=== PATIENT | female | born 1955 | race Caucasian/White ===

== ENCOUNTER 2024-12-26 09:32 | Outpatient (AMB) | payer MEDICARE, OTHER, SELFPAY ==
--- NOTE | 2024-12-26 09:48 | A.OFFVIS_ITS ---
Intake Visit Reasons: 6m Allergies No Known Allergies Allergy (Verified 12/26/24 09:48) Medication List - Last Reconciled 12/26/24 by Miriam Mendez CNP atogepant (Qulipta) 60 mg PO .every other day 30 days atorvastatin 10 mg PO DAILY ycnbfxoapb-vtnrrylsigbqf-xdwx 50-325-40 mg 1 tab PO Q6H PRN diltiazem HCl CD 240 mg PO DAILY famotidine 40 mg PO DAILY ipratropium bromide intranasal minoxidil mg PO ondansetron 4 mg PO DAILY PRN 30 days pantoprazole 40 mg PO DAILY temazepam 15 mg PO BEDTIME PRN zolmitriptan take 1 tab at onset of headache; if no relief, may repeat 1 tab after at least 2 hrs; max = 2 tabs/24 hrs PO 30 days HPI Comments Details: She was doing okay. Migraines controlled with Quilpta, taking 1/2 tablet daily. Had 3 migraines in last 6 months that lasted about 1 day with nausea. Using Fioricet as needed which helps dull pain some, works better for mild headaches. Ran out of zolmitriptan. Few mild headaches which may be triggered by stress. Sleep was up and down. Under some stress related to 's health. Doing well with Qulipta every other day, getting only slight headaches. Previously, was getting migraines 2-3x/ week that are moderate and 1-2 bad migraines/month. Weather changes trigger them. Cannot afford the copay and had a rash with each of the Ajovy, Aimovig and Emgality. Fioricet not working well and may take a Percocet. Bad intestinal bleed on Mar 12, 2019 (Also 18yrs ago) This time they could not see the bleeding site. Completed her iron infusions. Neck pain from degen disc disease is milder and when worse it triggers her migraine. She has a history of migraine headaches since childhood. She had been getting Botox injections in [place] for many years. In the past has tried Topiramate, amitriptyline and Propranolol, Emgality, Ajovy. Last Botox 2018. [facility] Medical History (Updated 12/26/24 @ 09:56 by Miriam Mendez CNP) Insomnia Depression Hypertension Review of Systems Const Denies chills, Denies daytime sleepiness, Reports difficulty sleeping, Denies fatigue, Denies fever(s), Denies frequent falls, Reports headache(s), Denies increased appetite, Denies poor appetite, Denies snoring, Denies weakness, Denies weight gain and Denies weight loss Eyes Denies loss of vision ENT Denies vertigo, Denies dizziness, Reports headache(s) and Denies neck pain Card Denies chest pain at rest, Denies chest pain with activity, Denies syncope, Denies leg edema, Denies palpitations, Denies dyspnea and Denies dyspnea on exertion Resp Denies cough, Denies dyspnea, Denies dyspnea on exertion and Denies snoring GI Denies abdominal pain, Denies constipation, Denies heartburn, Denies diarrhea and Denies nausea Denies urinary frequency, Denies urinary incontinence and Denies urinary urgency Musc Denies abnormal gait, Denies back pain, Denies myalgias, Denies arthralgias, D enies neck pain, Denies numbness and Denies tingling Neuro Denies abnormal gait, Denies vertigo, Denies dizziness, Denies syncope, Denies frequent falls, Reports headache(s), Denies lack of coordination, Denies loss of vision, Denies memory loss, Denies numbness, Denies Other visual disturbances, Denies restless legs, Denies seizure-like activity, Denies tingling, Denies p aresthesias, Denies tremor(s) and Denies weakness Psych Denies anxiety, Reports depression, Denies auditory hallucinations, Denies memory loss and Denies visual hallucinations Endo Denies fatigue and Denies palpitations Physical Exam Const Other: General Appearance:? normal, in no acute distress. Heart:? S1, S2 normal, no murmurs. Lungs:? clear anteriorly and posteriorly. Musculoskeletal:? normal. Extremities:? no edema. Psych:? alert, oriented, cognitive function intact, cooperative with exam. Neuro Other: Abnormal Neurological Findings:?1-2mm L ptosis. Slight weakness of L frontalis. Facial asymmetry with L angle of mouth droop without weakness. Mental Status: alert and oriented X 3. Normal attention, orientation, memory, and affect. Cranial Nerves: Pupils are equal, round, and reactive to light. External ocular muscles are intact. Visual vines are full, 1-2mm L ptosis. Facial asymmetry as above. Facial sensations are normal. Tongue protrudes in midline. Palate elevates symmetrically. Shoulder shrugging is normal Motor Examination: Normal muscle tone, bulk and strength. No atrophy or fasciculations. No drift of the extended upper extremities. DTR 2+. Plantars are flexor. Sensory Exam: Normal light touch, temperature, pinprick, vibration, and joint- position sensations. Rhomberg sign is absent. Coordination: No ataxia. No titubation. Gait Exam: Within normal limits. Cerebellar Signs: Msjolj-yw-zimx and sioz-gn-rqoa is normal. Extrapyramidal System: No tremor, rigidity with normal facial expressions. No bradykinesia. No bradyphrenia. Normal arm swing and posture. No propulsion or retropulsion. Speech: Normal. Results Reviewed Results Reviewed: MRI 09/05/17 and 09/05/16 shows mild microvascular disease and a stable right temporal lobe csf space. Ptosis possibly related to Botox but not resolving. Labs normal. Assessment & Plan Assessment & Plan (1) Migraine: Code(s): G43.909 - Migraine, unspecified, not intractable, without status migrainosus Category: Medical Qualifiers: Migraine type: unspecified Status migrainosus presence: without status migrainosus Intractability: not intractable Qualified Code(s): G43.909 - Migraine, unspecified, not intractable, without status migrainosus Plan: Continue Qulipta 60mg 1/2 tablet daily. Refilled zolmitriptan 5mg 1 tablet as needed for migraines. Start ondansetron 4mg 1 tablet as needed for nausea/vomiting. (2) Ptosis: Code(s): H02.409 - Unspecified ptosis of unspecified eyelid Category: Medical Qualifiers: Laterality: left Qualified Code(s): H02.402 - Unspecified ptosis of left eyelid Plan Has failed prophylaxis with Propranolol, Topiramate, Amitriptyline, NSAIDS, Botox, calcium channel blockers. Uses Triptans for abortive therapy. Traeerwin and Isatu both worked but she was having very itchy local reactions so she stopped them. Emgality 02/08/19 to May 2019, severe local reactions. Does not want Botox again because of the ptosis from last injection. Medications: New zolmitriptan take 1 tab at onset of headache; if no relief, may repeat 1 tab after at least 2 hrs; max = 2 tabs/24 hrs PO 10 tabs 5RF 30 days ondansetron 4 mg PO DAILY PRN 10 tabs 5RF nausea and vomiting 30 days Coding Level of Care Code Est Pt Level 4 (23156) Diagnoses Migraine without status migrainosus, not intractable, unspecified migraine type G43.909 Migraine type: unspecified Status migrainosus presence: without status migrainosus Intractability: not intractable Ptosis of left eyelid H02.402 Laterality: left
--- OUTSIDE RECORDS SUMMARY | 2024-12-26 10:48 | XMS_ITS | Encounter Summary ---
Author Organization [facility] Address [address] [place] [address] [address] [place] [address] Phone Care Team Providers Care Optomechanical Technician Name Role Phone Loreto Bustillo CNP Unavailable [phone] Diann Juarez MD Unavailable [phone] Jacky Chan MD Unavailable Fariha Briseno NP Unavailable Tami Greenberg MD Unavailable Jonathan Alonzo MD Unavailable Unavailable Jim Durant MD Unavailable [phone] Marcos Sanz MD Unavailable [phone] Loreto Bustillo CNP Primary Care Provider Diann Juarez MD Unavailable Diann Juarez MD Unavailable [phone] Loreto Bustillo CNP Unavailable [phone] Reason for Referral * MRI/CAT Scan - Closed Specialty Diagnoses / Procedures Referred By Contac t Referred To Contact Radiology Diagnoses Arthralgia of bilateral temporomandibular joint Other specified disorders of eustachian tube, bilateral Nonintractable headache, unspecified chronicity pattern, unspecified headache type Procedures CT Face Navarro Holley MD Phone: tel: fax: [email or web address] Referral ID Status Reason Start Date Expiration Date Visits Re quested Visits Authorized [id number] Closed 01/07/2021 01/07/2022 1 1 Encounter Details Date Type Department Care Team (Latest Contact Info) Description 01/07/2021 Transcribe Orders Virtual Department [address] [place] [address] Navarro Holley MD 100 [facility], [address] [place] [address] [email or web address] Arthralgia of bilateral temporomandibular joint (Primary Dx); Other specified disorders of eustachian tube, bilateral; Nonintractable headache, unspecified chronicity pattern, unspecified headache type Social History Tobacco Use Types Packs/Day Years Used Date Smoking Tobacco: Never Smokeless Tobacco: Never Alcohol Use Standard Drinks/Week Comments Yes 1 (1 standard drink = 0.6 oz pur e alcohol) twice a year Comments No Sex and Gender Information Value Date Recorded Sex Assigned at Female 01/14/2018 5:23 PM EDT Legal Sex Female 9:57 PM EDT Gender Identity Female 01/14/2018 5:23 PM EDT Sexual Orientation Not on file Occupation Industry Job Start Date Job End Date ATT[employer] Not on file Not on file Not on file documented as of this encounter Plan of Treatment Upcoming Encounters Date Type Department Care Team (Late st Contact Info) Description 12/26/2024 11:00 AM EDT Office Visit [facility] [address] [place] [address] Robert Tristan MD [address] [place] [address] [email or web address] 01/09/2025 10:20 AM EDT Office Visit [facility] [address] [place] [address] Robert Tristan MD [address] [place] [address] [email or web address] 06/06/2025 9:00 AM EDT Office Visit [facility] 14 [facility] [address] [place] [address] Keny Loreto Ogdense, AUTOMATIC COIN MACHINE MECHANIC 14 [facility] [address] [place] [address] documented as of this encounter Results * CT FACE WITHOUT CONTRAST (02/06/2021 2:18 PM EST) Anatomical Region Laterality Modality Face Computed Tomogra phy 02/06/2021 2:20 PM EST Impressions 02/06/2021 2:46 PM EST No evidence of sinusitis. Narrative 02/06/2021 2:46 PM EST COMPARISON: MRI brain 08/31/2017. TECHNIQUE: CT of the facial bones without contrast. Sagittal and coronal reformats generated. Automated exposure control utilized. CT FACIAL BONES FINDINGS: Brain: Stable mild generalized cortical atrophy and chronic right millimeter medial right temporal lobe perineural cyst versus perivascular space. No incidental findings of concern. Orbits: Left lens implant. Otherwise normal. Soft tissue: Normal. Bones/sinuses: Small left maxillary sinus retention cyst. No air-fluid levels. No nasal septal deviation. Ostiomeatal complex is are patent. Mastoids, middle ears and external canals are clear. No destructive or suspicious bone lesions. Procedure Note Jonathan Luo MD - 02/06/2021 COMPARISON: MRI brain 08/31/2017. TECHNIQUE: CT of the facial bones without contrast. Sagittal and coronalreformats generated. Automated exposure control utilized. CT FACIAL BONES FINDINGS: Brain: Stable mild generalized cortical atrophy and chronic rightmillimeter medial right temporal lobe perineural cyst versus perivascularspace. No incidental findings of concern. Orbits: Left lens implant. Otherwise normal. Soft tissue: Normal. Bones/sinuses: Small left maxillary sinus retention cyst. No air-fluidlevels. No nasal septal deviation. Ostiomeatal complex is are patent.Mastoids, middle ears and external canals are clear. No destructive orsuspicious bone lesions. IMPRESSION: No evidence of sinusitis. Navarro Holley MD IMG CT HEAD/NECK Final Re sult documented in this encounter Visit Diagnoses Diagnosis Arthralgia of bilateral temporomandibular joint- Primary Other specified disorders of eustachian tube, bilateral Nonintractable headache, unspecified chronicity pattern, unspecified headache type Arthralgia of bilateral temporomandibular joint Other specified disorders of eustachian tube, bilateral Nonintractable headache, unspecified chronicity pattern, unspecified headache type Hyperlipidemia, unspecified hyperlipidemia type- Primary Essential hypertension Unspecified essential hypertension Coronary artery calcification seen on CT scan Mitral annular calcification Mitral valve disorders documented in this encounter Additional Health Concerns Infection Onset Date Last Indicated Resolved Time CoV-Risk 06/02/2021 06/02/2021 06/13/2021 1:23 AM EDT documented as of this encounter Care Teams Optomechanical Technician Relationship Specialty Start Date End Date Loreto Bustillo CNP [address] [place] [address] [place] [address] [email or web address] PCP - General 01/12/17 Loreto Bustillo CNP [address] [place] [address] [place] [address] [email or web address] Historical LMR Provider 01/10/17 Diann Juarez MD [address] [place] [address] [address] [place] [address] [email or web address] Historical LMR Provider 01/10/17 Jacky Chan MD [address] [place] [address] [address] [place] [address] [email or web address] Historical LMR Provider 01/10/17 Fariha Briseno NP 14 [facility] [address] [place] [address] [email or web address] Historical LMR Provider 01/10/17 Tami Greenberg MD [address] [place] [address] [email or web address] Historical LMR Provider 01/10/17 Jonathan Alonzo MD Historical LMR Provider 01/10/17 03/29/21 Jim Durant MD [address] [place] [address] Historical LMR Provider 01/10/17 2 Marcos Sanz MD [address] [place] [address] [email or web address] Historical LMR Provider 01/10/17 03/29/21 Diann Juarez MD [address] [place] [address] [email or web address] Insurance Assigned Provider 06/28/1903/28/22 Diann Juarez MD 14 [facility] [address] [place] [address] [email or web address] Insurance Assigned Provider 06/26/2306/25/24 Loreto Butsillo, ELIZABETH [address] [place] [address] [place] [address] [email or web address] Insurance Assigned Provider 06/25/24 documented as of this encounter Additional Source Comments The information contained in this document represents components of the legal health record. It is not the complete legal health record.[facility]
--- OUTSIDE RECORDS SUMMARY | 2024-12-26 10:48 | XMS_ITS | Encounter Summary ---
Author Organization [facility] Address [address] [place] [address] [place] [address] Phone Care Team Providers Care Handicapped Teacher Name Role Phone Loreto Bustillo CNP Unavailable [phone] Diann Juarez MD Unavailable [phone] Jacky Chan MD Unavailable [phone] Fariha Briseno NP Unavailable [phone] Tami Greenberg MD Unavailable [phone] Loreto Bustillo CNP Primary Care Provider Diann Juarez MD Unavailable [phone] Diann Juarez MD Unavailable [phone] Loreto Bustillo CNP Unavailable [phone] Encounter Details Date Type Department Care Team (Latest Contact Info) Description 01/01/2022 Transcribe Orders [facility] [address] [address] Jami Tellez NP 10 [place] [address] Constipation, unspecified constipation type (Primary Dx); Change in bowel habits; Nausea Social History Tobacco Use Types Packs/Day Years Used Date Smoking Tobacco: Never Smokeless Tobacco: Never Alcohol Use Standard Drinks/Week Comments Yes 0 (1 standard drink = 0.6 oz pur e alcohol) twice yearly Comments No Sex and Gender Information Value [...] Description 12/26/2024 11:00 AM EDT Office Visit [facility] [address] [place] [address] Robert Tristan MD [address] [address] [email or web address] 01/09/2025 10:20 AM EDT Office Visit [facility] [address] [place] [address] Robert Tristan MD [address] [address] [email or web address] 06/06/2025 9:00 AM EDT Office Visit [facility] [place] [facility] 14 [facility] [address] [place] [address] PheLoreto bains, TURBO GENERATOR OILER 14 [facility] [address] [place] [address] [email or web address] documented as of this encounter Results * TSH (01/01/2022 2:49 PM EDT) TSH 1.76 0.27 - 4.20 uIU/mL [facility] Blood 01/01/2022 2:49 PM EDT 01/01/2022 2:53 PM EDT us Jami Tellez AIR ANALYST LAB BLOOD ORDERABLES Alejandra l Result [facility] [address] [place] [address] * Lipase (01/01/2022 2:49 PM EDT) Pathologist [facility] LIPASE 52 16 - 63 U/L [facility] Blood 01/01/2022 2:49 PM EDT 01/01/2022 2:53 PM EDT Jami Tellez AIR ANALYST LAB BLOOD ORDERABLES Alejandra l Result [address] [address] * C-Reactive Protein (01/01/2022 2:49 PM EDT) Pathologist [facility] C REACTIVE PROTEIN <3.0 0.0 - 4.0 mg/L [facility] Blood 01/01/2022 2:49 PM EDT 01/01/2022 2:53 PM EDT Jami Tellez NP LAB BLOOD ORDERABLES Alejandra l Result [address] [address] * (ABNORMAL) Comprehensive metabolic panel (01/01/2022 2:49 PM EDT) Pathologist [facility] SODIUM 140 133 - 146 mmol/L [facility] POTASSIUM 4.0 3.3 - 5.1 mmol/L [facility] CHLORIDE 103 96 - 108 mmol/L [facility] CO2 26 21 - 35 mmol/L [facility] BUN 13 6 - 19 mg/dL [facility] CREATININE 0.70 0.5 - 1.5 mg/dL [facility] GLUCOSE 114(H) 70 - 99 mg/dL [facility] ALBUMIN 4.3 3.9 - 4.8 g/dL [facility] TOTAL PROTEIN 6.9 6.5 - 8.0 g/dL [facility] CALCIUM 9.7 8.4 - 10.3 mg/dL [facility] ALKALINE PHOSPHATASE 115 39 - 117 U/L [facility] TOTAL BILIRUBIN <0.2 0.0 - 1.2 mg/dL [facility] AST 29 0 - 37 U/L [facility] ALT 18 0 - 40 U/L [facility] GLOBULIN 2.6 1 - 4.8 g/dL [facility] EGFR 94 >59 mL/min/1.7 3m2 [facility] Comment:Estimated glomerular filtration rate calculated using the CKD-EPI refit equation. ANION GAP 15 10 - 20 mmol/L [facility] Blood 01/01/2022 2:49 PM EDT 01/01/2022 2:53 PM EDT Jami Tellez NP LAB BLOOD ORDERABLES Alejandra l Result Performing Organization Address City/[facility]/ZIP Co de Phone Number [address] [address] * CBC (01/01/2022 2:49 PM EDT) WBC 6.30 4.00 - 11.00 K/uL [facility] RBC 4.42 3.72 - 5.30 M/uL [facility] HGB 13.3 11.4 - 15.9 g/dL [facility] HCT 38.6 34.2 - 46.8 % [facility] PLT 283 140 - 430 K/uL [facility] MCV 87.3 78.0 - 97.0 fL [facility] MCH 30.1 25.0 - 33.0 pg [facility] MCHC 34.5 32.0 - 36.0 g/dL [facility] RDW 12.0 11.0 - 16.0 % [facility] MPV 12.0 8.4 - 12.8 fl [facility] Blood 01/01/2022 2:49 PM EDT 01/01/2022 2:53 PM EDT Jami Tellez NP LAB BLOOD ORDERABLES Alejandra l Result Performing Organization Address City/[facility]/ZIP Co de Phone Number [address] [address] * Immunoglobulin A (01/01/2022 2:49 PM EDT) IgA 268 70 - 400 mg/dL [facility] Blood 01/01/2022 2:49 PM EDT 01/01/2022 2:53 PM EDT Jami Tellez AIR ANALYST LAB BLOOD ORDERABLES Alejandra l Result [facility] [address] [place] [address] * Tissue transglutaminase IgA (01/01/2022 2:49 PM EDT) TTG IGA ANTIBODY <1.2 <4.0 (Negative) U/mL [facility] Blood 01/01/2022 2:49 PM EDT 01/01/2022 2:54 PM EDT Jami Tellez AIR ANALYST LAB BLOOD ORDERABLES Alejandra l Result Performing Organization Address City/[facility]/ZIP Co de Phone Number [facility] [address] [place] [address] documented in this encounter Visit Diagnoses Diagnosis Constipation, unspecified constipation type- Primary Change in bowel habits Other symptoms involving digestive system Nausea Nausea alone Hyperlipidemia, unspecified hyperlipidemia type- Primary Essential hypertension Unspecified essential hypertension Coronary artery calcification seen on CT scan Mitral annular calcification Mitral valve disorders documented in this encounter Additional Health Concerns Assessment Noted Time PHQ-2 Depression Total Score: 0 04/02/19 22 8:45 AM EST documented as of this encounter Care Teams Handicapped Teacher Relationship Specialty Start Date End Date Loreto Bustillo CNP 14 [facility] [address] [place] [address] PCP - General 01/12/17 Loreto Bustillo CNP [address] [place] [address] [address] [place] [address] [email or web address] Historical LMR Provider 01/10/17 Diann Juarez MD [address] [place] [address] [email or web address] Historical LMR Provider 01/10/17 Jacky Chan MD [address] [place] [address] [email or web address] Historical LMR Provider 01/10/17 Fariha Briseno NP [address] [place] [address] [email or web address] Historical LMR Provider 01/10/17 Tami Greenberg MD [address] [place] [address], [facility] [place] [address] [email or web address] Historical LMR Provider 01/10/17 Diann Juarez MD [address] [place] [address] [email or web address] Insurance Assigned Provider 06/28/1903/28/22 Diann Juarez MD [address] [place] [address] [email or web address] Insurance Assigned Provider 06/26/2306/25/24 Loreto Bustillo, TURBO GENERATOR OILER [address] [place] [address] [email or web address] Insurance Assigned Provider 06/25/24 documented as of this encounter Additional Source Comments The information contained in this document represents components of the legal health record. It is not the complete legal health record.[facility]
--- OUTSIDE RECORDS SUMMARY | 2024-12-26 10:48 | XMS_ITS | Encounter Summary ---
Author Organization [facility] Address [address] [place] [address] [place] [address] Phone Care Team Providers Care Cane Flume Chute Operator Name Role Phone Loreto Bustillo CNP Unavailable [phone] Diann Juarez MD Unavailable [phone] Jacky Chan MD Unavailable [phone] Fariha Briseno NP Unavailable [phone] Tami Greenberg MD Unavailable Loreto Bustillo CNP Primary Care Provider Diann Juarez MD Unavailable [phone] Diann Juarez MD Unavailable [phone] Loreto Bustillo CNP Unavailable Encounter Details Date Type Department Care Team (Late st Contact Info) Description 05/27/2021 Transcribe Orders Virtual Department [address] [place] [address] Loreto Bustillo CNP 14 [facility] [address] [place], [place] [id number] [email or web address] Knee pain, unspecified chronicity, unspecified laterality (Primary Dx); Patellofemoral stress syndrome, unspecified laterality; Other cervical disc degeneration, unspecified cervical region Social History Tobacco Use Types Packs/Day Years [...] Description 12/26/2024 11:00 AM EDT Office Visit [facility] [address] [place] [address] Robert Tristan MD [address] [place] [address] [email or web address] 01/09/2025 10:20 AM EDT Office Visit [facility] [address] [place] [address] Robert Tristan MD [address] [place] [address] [email or web address] 06/06/2025 9:00 AM EDT Office Visit [facility] 14 [facility] [address] [place] [address] Loreto Bustillo, SOLAR ELECTRIC PRACTITIONER 14 [facility] [address] [place] [address] [email or web address] Scheduled Orders Name Type Priority Associated Diagnoses Orde r Schedule XR Neck Soft Tissue Imaging Routine Other cervical disc degeneration, unspecified cervical region Expected: 05/27/2021, Expires: 05/27/2022 documented as of this encounter Results * XR KNEE 3 VIEW (LEFT) (06/04/2021 2:41 PM EDT) Anatomical Region Laterality Modality Knee Left Computed Radiogr aphy 06/04/2021 5:14 PM EDT Impressions 06/04/2021 5:14 PM EDT No fracture or dislocation. Narrative 06/04/2021 5:14 PM EDT XR KNEE 3 VIEW (LEFT) COMPARISON: None FINDINGS: Left Knee: No fracture. Normal alignment. Normal joint spaces. No effusion. Procedure Note Jim Guzman MD - 06/04/2021 XR KNEE 3 VIEW (LEFT) COMPARISON: None FINDINGS: Left Knee: No fracture. Normal alignment. Normal joint spaces. Noeffusion. IMPRESSION: No fracture or dislocation. Loreto Bustillo CNP IMG XR LOWER EXTREMITY Final Result documented in this encounter Visit Diagnoses Diagnosis Knee pain, unspecified chronicity, unspecified laterality- Primary Patellofemoral stress syndrome, unspecified laterality Other cervical disc degeneration, unspecified cervical region Knee pain, unspecified chronicity, unspecified laterality Patellofemoral stress syndrome, unspecified laterality Hyperlipidemia, unspecified hyperlipidemia type- Primary Essential hypertension Unspecified essential hypertension Coronary artery calcification seen on CT scan Mitral annular calcification Mitral valve disorders documented in this encounter Additional Health Concerns Infection Onset Date Last Indicated Resolved Time CoV-Risk 06/02/2021 06/02/2021 06/13/2021 1:23 AM EDT Assessment Noted Time PHQ-2 Depression Total Score: 0 04/02/19 22 8:45 AM EST documented as of this encounter Care Teams Cane Flume Chute Operator Relationship Specialty Start Date End Date Loreto Bustillo CNP 14 [facility] [address] [place] [address] [email or web address] PCP - General 01/12/17 Loreto Bustillo CNP [address] [place] [address] [address] [place] [address] Historical LMR Provider 01/10/17 Diann Juarez MD [address] [place] [address] [email or web address] Historical LMR Provider 01/10/17 Jacky Chan MD [address] [place] [address] [email or web address] Historical LMR Provider 01/10/17 Fariha Briseno NP [address] [place] [address] [email or web address] Historical LMR Provider 01/10/17 Tami Greenberg MD [address] [place] [address] [email or web address] Historical LMR Provider 01/10/17 Diann Juarez MD [address] [place] [address] [email or web address] Insurance Assigned Provider 06/28/1903/28/22 Diann Juarez MD [address] [place] [address] [email or web address] Insurance Assigned Provider 06/26/2306/25/24 Loreto Bustillo, SOLAR ELECTRIC PRACTITIONER [address] [place] [address] [email or web address] Insurance Assigned Provider 06/25/24 documented as of this encounter Additional Source Comments The information contained in this document represents components of the legal health record. It is not the complete legal health record.[facility]
--- OUTSIDE RECORDS SUMMARY | 2024-12-26 10:48 | XMS_ITS | Encounter Summary ---
Author Organization [facility] Address [address] [place] [address] [place] [address] Phone Care Team Providers Care Dialysis Equipment Technician Name Role Phone Loreto Bustillo CNP Unavailable [phone] Diann Juarez MD Unavailable Jacky Chan MD Unavailable Fariha Briseno NP Unavailable [phone] Tami Greenberg MD Unavailable Loreto Bustillo CNP Primary Care Provider Loreto Bustillo CNP Unavailable [phone] Encounter Details Date Type Department Care Team ([facility] st Contact Info) Description 12/26/2024 Orders Only [facility] [address] [place] [address] Robert Tristan MD 75 [facility] [address] [place] [address] [email or web address] Social History Tobacco Use Types Packs/Day Years Used Date Smoking Tobacco: Never Passive Smoke Exposure: Never Smokeless Tobacco: Never Alcohol Use Standard Drinks/Week Comments Yes 0 (1 standard drink = 0.6 oz pur e alcohol) twice yearly Education Answer Date Recorded Are you interested in more education? Not on alda e 07/17/2022 Are you concerned about learning? Not on file 07/17/2022 No 07/17/2022 No 07/17/2022 Digital Access Answer Date Recorded No 08/17/2022 No 08/17/2022 Reliable internet access at home? Not on file 08/17/2022 Device with a working camera? Not on file Intimate Partner Violence Answer Date R ecorded Are you denied basic needs s uch as food, clothing, or medical care? No 06/02/2024 In the past 12 months have y ou been in a relationship with a person who hurts, threatens, or tries to control you? No 06/02/2024 Are you denied basic needs s uch as food, clothing, or medical care? No 06/02/2024 In the past 12 months have y ou been in a relationship with a person who hurts, threatens, or tries to control you? No 06/02/2024 Comments No Sex and Gender Information Value [...] Description 12/26/2024 11:00 AM EDT Office Visit [facility] [address] [place] [address] Robert Tristan MD [address] [place] [phone] [email or web address] 01/09/2025 10:20 AM EDT Office Visit [facility] [address] [place] [address] Robert Tristan MD [address] [place] [address] [email or web address] 06/06/2025 9:00 AM EDT Office Visit [facility] [place] [facility] [address] [address] Loreto Bustillo CNP [address] [place] [address] [email or web address] Scheduled Orders Name Type Priority Associated Diagnoses Orde r Schedule ECG 12-LEAD ECG Routine Expected: 09/2024, Expires: 03/28/2025 documented as of this encounter Visit Diagnoses Not on filedocumented in this encounter Additional Health Concerns Assessment Noted Time PHQ-9 Depression Total Score: 6 11/18/19 2:53 PM EDT PHQ-2 Depression Total Score: 2 11/18/19 2:53 PM EDT documented as of this encounter Care Teams Dialysis Equipment Technician Relationship Specialty Start Date End Date Loreto Bustillo CNP [address] [place] [address] PCP - General 01/12/17 Loreto Bustillo CNP [address] [place] [address] [email or web address] Historical LMR Provider 01/10/17 Diann Juarez MD [address] [place] [address] [email or web address] Historical LMR Provider 01/10/17 Jacky Chan MD [address] [place] [address] [email or web address] Historical LMR Provider 01/10/17 Fariha Briseno NP [address] [place] [address] [email or web address] Historical LMR Provider 01/10/17 Tami Greenberg MD [address] [place] [address], [address] [place] [address] [email or web address] Historical LMR Provider 01/10/17 Loreto Bustillo CNP [address] [place] [address] [address] [place] [address] [email or web address] Insurance Assigned Provider 06/25/24 documented as of this encounter Additional Source Comments The information contained in this document represents components of the legal health record. It is not the complete legal health record.[facility]
--- OUTSIDE RECORDS SUMMARY | 2024-12-26 10:48 | XMS_ITS | Clinical Summary ---
Author Organization [facility] Address [address] [place] [address] [place] [id number] Phone Care Team Providers Care Controls Engineer Name Role Phone Loreto Bustillo CNP Unavailable [phone] Diann Juarez MD Unavailable Jacky Chan MD Unavailable [phone] Fariha Briseno NP Unavailable Tami Greenberg MD Unavailable [phone] Loreto Bustillo CNP Primary Care Provider Loreto Bustillo CNP Unavailable [phone] Allergies Active Allergy Reactions Criticality Noted Date Comments Fremanezumab-Vfrm Itching,Rash Low 02/29/2020 Sulfamethoxazole-Trimethop rim Hives Medium 11/13/2016 Cefaclor Hives Medium 11/13/2016 Galcanezumab-Gnlm Swelling,Rash Low 02/29/2020 Sumatriptan Succinate Low 11/13/2016 Tightness in throat Rizatriptan Low 11/13/2016 Tightness in throat Verapamil Rash Low 11/13/2016 Medications coenzyme Q10 100 mg capsule Take 300 mg by mouth daily. Active calcium carbonate-vitami n D3 1,250 mg (500 mg elemental)-400 units per tablet Take 1 tablet by mouth 2 (two) times a day. Active minoxidiL (LONITEN) 2.5 MG tablet Take 2.5 mg by mouth daily. Active ipratropium (ATROVENT) 42 mcg (0.06 %) nasal spray 2 (two) times a day. 11/22/19 23 Active albuterol 90 mcg/actuation inhalerIndicatio ns:Moderate persistent asthmatic bronchitis with acute exacerbation Inhale 2 puffs into the lungs every 4 (four) hours as needed. 8.5 g 01/12/20 23 Active QULIPTA 60 mg tabletIndication s:Migraine without aura and without status migrainosus, not intractable Take 1 tablet (60 mg total) by mouth daily. Every other day 45 tablet 1 03/09/20 24 Active atorvastatin (LIPITOR) 10 MG tablet TAKE ONE TABLET BY MOUTH EVERY DAY 90 tablet 3 04/11/19 25 Active temazepam (RESTORIL) 15 mg capsuleIndicatio ns:Primary insomnia Take 1 capsule (15 mg total) by mouth nightly at bedtime as needed. 30 capsule 2 04/28/19 25 Active finasteride (PROPECIA) 1 mg tablet Take 1 mg by mouth daily. Active valACYclovir (VALTREX) 1000 MG tabletIndication s:Cold sore TAKE ONE TABLET BY MOUTH TWICE A DAY 14 tablet 05/10/19 25 Active ALPRAZolam (XANAX) 0.5 MG tabletIndication s:Anxiety state Take 1 tablet (0.5 mg total) by mouth 3 (three) times a day as needed for sleep. 21 tablet 06/10/19 25 Active cyclobenzaprine (FLEXERIL) 10 MG tablet TAKE ONE TABLET BY MOUTH THREE TIMES A DAY NEEDED 30 tablet 10/05/19 25 Active citalopram (CELEXA) 10 MG tablet TAKE 1 + 1/2 TABLETS BY MOUTH DAILY 135 tablet 3 11/14/19 25 Active famotidine (PEPCID) 40 MG tabletIndication s:Gastroesophage al reflux disease, unspecified whether esophagitis present TAKE ONE TABLET BY MOUTH EVERY DAY 90 tablet 11/22/19 25 Active butalbital-aceta minophen-caffein e (FIORICET, ESGIC) 50-325-40 mg per tabletIndication s:Migraine without aura and without status migrainosus, not intractable Take 1 tablet by mouth every 4 (four) hours as needed (migraine). 50 tablet 12/06/19 25 Active pantoprazole (PROTONIX) 40 MG tabletIndication s:Chronic cough,Gastroesop hageal reflux disease, unspecified whether esophagitis present Take 1 tablet (40 mg total) by mouth daily. 30 tablet 12/16/19 25 025 Active dilTIAZem (CARDIZEM CD) 240 MG 24 hr capsuleIndicatio ns:Benign essential hypertension TAKE ONE CAPSULE BY MOUTH EVERY DAY 90 capsule 3 12/19/19 25 Active dilTIAZem (CARDIZEM CD) 240 MG 24 hr capsuleIndicatio ns:Benign essential hypertension TAKE 1 CAPSULE BY MOUTH EVERY DAY 90 capsule 3 12/16/19 24 025 Discontinued butalbital-aceta minophen-caffein e (FIORICET, ESGIC) 50-325-40 mg per tabletIndication s:Migraine without aura and without status migrainosus, not intractable Take 1 tablet by mouth every 4 (four) hours as needed (migraine). 50 tablet 07/19/19 025 Discontinued(Re order) omeprazole (PRILOSEC) 20 MG capsuleIndicatio ns:Chronic cough Take 1 capsule (20 mg total) by mouth daily for 14 days. 11/18/19 025 Discontinued(No longer taking) predniSONE (DELTASONE) 10 MG tablet Take 4 tablets (40 mg total) by mouth daily for 5 days. 20 tablet 12/09/19 025 Discontinued(No longer taking) Active Problems Problem Noted Date Diagnosed Date Plantar fasciitis of left foot 05/03/2024 Assessment & Plan (05/03/2024 9:47 AM EST): Some improvement with recent cortisone injection. Continue heel exercises and f/u if worsening. Closed bimalleolar fracture of left ankle 2023 Closed fracture of left ankle 10/28/2023 Assessment & Plan (06/02/2024 9:46 AM EDT): S/p ORIF around three months ago. Patient does seem to progressing with her physical therapy treatments, although she does continue to struggle with ankle pain following surgery. F/u with Dr. Gonzales of orthopedic surgery as scheduled. Assessment & Plan (05/03/2024 9:46 AM EST): S/p ORIF around two months ago. Patient is doing well and seeing some progress with her physical therapy treatments. Continue current therapy and f/u with Dr. Gonzales of orthopedic surgery as scheduled. Assessment & Plan (10/28/2023 12:47 PM EDT): Recent left ankle fracture occurring around 1.5 weeks ago. Recently transitioned to short leg cast. Close follow-up with orthopedics as planned. Chronic constipation 05/27/2022 Assessment & Plan (06/02/2024 9:45 AM EDT): Ongoing issues, but fairly well-managed with fiber, stool softeners, probiotic, and MiraLAX as needed. Assessment & Plan (10/28/2023 12:47 PM EDT): Continue fiber supplements and probiotic. MiraLAX as needed. Assessment & Plan (06/01/2023 9:45 AM EDT): Continue fiber supplements and probiotic. May benefit from adding stool softener once or twice daily. MiraLAX as needed. F/u with GI if symptoms persist. Pt verbalizes understanding and in agreement with plan. Assessment & Plan (05/27/2022 8:05 PM EST): Continue fiber supplements and probiotic. May benefit from adding stool softener once or twice daily. MiraLAX as needed. F/u with GI if symptoms persist. Pt verbalizes understanding and in agreement with plan. Sesamoiditis of foot 05/01/2022 Assessment & Plan (06/01/2023 9:41 AM EDT): Bilateral sesamoiditis. Patient is managing with orthotics and would like to avoid surgery. Assessment & Plan (05/27/2022 7:55 PM EST): Ongoing foot pain, diagnosed as sesamoiditis. Patient is not really interested in surgery at this time, but requesting second opinion. Referral placed to Dr. Duarte at [facility]. F/u as needed. Hyperlipidemia 04/27/2022 Assessment & Plan (06/02/2024 9:43 AM EDT): Stable on current therapies. Continue atorvastatin as prescribed. Assessment & Plan (10/28/2023 12:44 PM EDT): Stable, continue atorvastatin 10 mg daily. Assessment & Plan (06/01/2023 9:36 AM EDT): Continue Lipitor. Stable based on blood work from last year. Assessment & Plan (05/27/2022 7:49 PM EST): Continue Lipitor and recheck lipid panel in 3 months. Coronary artery calcification seen on CT scan Mitral annular calcification 04/27/2022 Osteopenia of multiple sites 03/29/2019 Assessment & Plan (06/02/2024 9:46 AM EDT): Stable and some increase in bone based on most recent DXA results. Continue weight bearing exercise. Repeat DXA in Assessment & Plan (06/01/2023 9:42 AM EDT): Stable and some increase in bone based on most recent DXA results. Continue weight bearing exercise. Repeat DXA in 3 years. Primary osteoarthritis of both shoulders 019 Assessment & Plan (05/27/2022 7:53 PM EST): Stable, at baseline. Assessment & Plan (04/02/2021 9:42 AM EST): Stable, at baseline. Encounter for Medicare annual wellness exam 08/21 Assessment & Plan (06/02/2024 9:47 AM EDT): Generally well female, up-to-date on colonoscopy, immunizations, mammogram, and bone density testing. No further Pap smears recommended. Advised on healthy diet, regular exercise, and to consume at least 1200 mg Calcium and 2000 iU Vitamin D daily by diet and/or supplementation. Assessment & Plan (06/01/2023 9:42 AM EDT): Generally well female, up-to-date on colonoscopy, immunizations, mammogram, and bone density testing. No further Pap smears recommended. Advised on healthy diet, regular exercise, and to consume at least 1200 mg Calcium and 2000 iU Vitamin D daily by diet and/or supplementation. Assessment & Plan (05/27/2022 7:44 PM EST): Generally well female, up-to-date on colonoscopy, immunizations, mammogram, and bone density testing (scheduled later this month). No further Pap smears recommended. Advised on healthy diet, regular exercise, and to consume at least 1200 mg Calcium and 2000 iU Vitamin D daily by diet and/or supplementation. Assessment & Plan (04/02/2021 9:45 AM EST): Generally well female, up-to-date on colonoscopy (due in 02/2022), immunizations, mammogram, and bone density testing (recommend repeating in 1-2 years). No further Pap smears recommended.Advised on healthy diet, regular exercise, and to consume at least 1200 mg Calcium and 2000 iU Vitamin D daily by diet and/or supplementation. Assessment & Plan (09/09/2018 8:30 AM EDT): Generally well female, up-to-date on colonoscopy, mammogram, and Pap smear. Due for bone density screening. Also due to start pneumonia vaccines, Prevnar given in office today. Patient could consider Shingrix vaccines, encouraged her to discuss this with her local pharmacist. No additional screenings recommended. Advised on healthy diet, regular exercise, and to consume at least 1200 mg Calcium and 2000 iU Vitamin D daily by diet and/or supplementation. Seasonal allergic rhinitis 09/09/2018 Assessment & Plan (06/02/2024 9:42 AM EDT): Patient continues to struggle with allergy symptoms, despite OTC therapies and regular allergy shots. She does feel that her symptoms are at their baseline. Assessment & Plan (10/28/2023 12:44 PM EDT): Stable on current therapies. Continue current regimen and follow up with wood die maker as scheduled. Assessment & Plan (06/01/2023 9:36 AM EDT): Stable on current therapies. Continue current regime and follow up with wood die maker as scheduled. Assessment & Plan (05/27/2022 7:57 PM EST): Stable on current therapies. Continue current regime and follow up with wood die maker as scheduled. Assessment & Plan (04/02/2021 9:42 AM EST): Continue Zyrtec at bedtime and allergy shots. Patient has upcoming appointment with wood die maker. Assessment & Plan (11/18/2018 9:17 AM EDT): Will add Singulair. Assessment & Plan (09/09/2018 8:34 AM EDT): Recently worsening sinus congestion and cough, likely related to underlying allergic rhinitis. Patient encouraged to start Flonase 1 spray in each nostril twice daily, follow-up by phone in 1 week to discuss efficacy. If no improvement, particularly in cough, may consider chest x-ray and further work-up. Patient verbalizes understanding and in agreement with plan. Cervical radiculitis 02/06/2017 Assessment & Plan (06/02/2024 9:44 AM EDT): Patient continues to struggle with chronic neck and right upper back pain related to cervical radiculitis. Patient is interested in getting connected with a neurosurgeon eventually, but has felt that this is not a priority due to her 's health issues. She will reach out for referral when desired. Assessment & Plan (10/28/2023 12:46 PM EDT): Patient continues to struggle with chronic neck and right upper back pain related to cervical radiculitis. We did discuss referral to pain management clinic at [facility], will look into this further and reach out via PG message for referral. No evidence of abuse or diversion of Percocet. Continue current therapies and f/u with Dr. Lutz as scheduled. Assessment & Plan (05/27/2022 7:53 PM EST): Ongoing issues and treatment underway with Dr[facility] Lutz at [facility], with upcoming laser treatment scheduled. No evidence of abuse or diversion of Percocet. Continue current therapies and f/u with Dr. Lutz as scheduled. Assessment & Plan (04/02/2021 9:43 AM EST): Stable at baseline, although patient is being followed by Dr. Lutz at [facility] who suggested that she may need repeat injections in the future. F/u with Dr. Lutz as scheduled. Chronic neck pain 02/06/2017 Assessment & Plan (04/02/2021 9:44 AM EST): Chronic neck pain, for which patient occasionally takes naproxen or Flexeril. Very infrequent use of Percocet, without evidence of abuse or diversion. Assessment & Plan (09/09/2018 8:31 AM EDT): Chronic right-sided neck and upper back pain, without improvement despite multiple therapies in the past. Follow-up with Dr. Higgins at [facility] as scheduled. Depression with anxiety 02/06/2017 Assessment & Plan (06/02/2024 9:46 AM EDT): Patient has been dealing with very high situational stressors, but is managing fairly well. We did discuss potentially increasing Celexa, but patient does not feel that this is necessary at this time. Continue current regimen and follow-up in 3 months for reevaluation, or sooner as needed. Assessment & Plan (05/03/2024 9:47 AM EST): Stable, improved mood as patient's functionality improves from her recent ankle fracture. Continue Celexa and f/u next month at time of Medicare annual wellness exam. Assessment & Plan (10/28/2023 12:47 PM EDT): Stable on current therapies. Continue Celexa 10 mg daily. Assessment & Plan (06/01/2023 9:45 AM EDT): Stable on current therapies. Continue Celexa 10 mg daily. Assessment & Plan (05/27/2022 7:50 PM EST): Stable on current therapies. Continue Celexa 10 mg daily. Assessment & Plan (04/02/2021 9:44 AM EST): Stable despite high situational stressors with Prozac 20 mg daily. Continue current regimen and follow-up for any worsening depression or anxiety Assessment & Plan (09/09/2018 8:33 AM EDT): Stable on current therapies. No evidence of abuse or diversion of alprazolam. Continue current therapies and follow-up as needed. Assessment & Plan (02/17/2018 9:09 AM EST): Worsening depression. Will stop Citalopram and start Prozac. Pt instructed on use, side effects, and adverse effects. Encouraged to continue psychotherapy. F/u in 4-6 weeks for reevaluation. Pt verbalizes understanding and in agreement with plan. Essential hypertension 02/06/2017 Assessment & Plan (06/02/2024 9:41 AM EDT): Stable on current therapies. Continue diltiazem to 40 mg daily. Assessment & Plan (10/28/2023 12:44 PM EDT): Stable on current therapies. Continue current regimen of diltiazem and f/u with cardiology as needed. Assessment & Plan (06/01/2023 9:36 AM EDT): Stable on current therapies. Continue current regimen and f/u with cardiology as needed. Assessment & Plan (05/27/2022 7:48 PM EST): Stable on current therapies. Continue current regimen and f/u with cardiology as needed. Assessment & Plan (04/02/2021 9:41 AM EST): Stable on current therapies. Continue current regimen and f/u with cardiology as needed. Assessment & Plan (03/18/2019 3:26 PM EST): - bp meds held at admission d/t acute bleeding - now bleeding stopped and blood pressure elevated - resume diltiazem with hold parameters, cont to hold lisinopril for now Assessment & Plan (09/09/2018 8:37 AM EDT): Stable on current therapies. Continue diltiazem and lisinopril as prescribed. Screening EKG in office today shows a normal sinus rhythm without ectopy, or evidence of ischemia/infarct. Assessment & Plan (12/29/2017 3:26 PM EDT): Borderline elevated BPs at home and in office since transitioning from Chlorthalidone to Spironolactone. Advised pt to reach out to cardiology to discuss increasing Spironolactone or alternative therapy. Pt verbalizes understanding and in agreement with plan. GERD (gastroesophageal reflux disease) 7 Assessment & Plan (06/02/2024 9:45 AM EDT): Patient is reporting some increased reflux, will start Pepcid 40 mg at bedtime. Patient instructed on medication use, potential side effects and adverse effects. Patient encouraged on importance of avoiding trigger foods, sleeping with head of bed elevated, and avoiding eating within 1-2 hours of going to bed. If ineffective, patient encouraged to reach out to discuss alternative therapies. Patient agreement with plan. Assessment & Plan (10/28/2023 12:46 PM EDT): Stable, with occasional use of Prilosec. Assessment & Plan (06/01/2023 9:40 AM EDT): Stable, with occasional use of Prilosec. Assessment & Plan (05/27/2022 8:04 PM EST): Stable, off therapies. No worsening heartburn recently with recent taper off Prilosec. Assessment & Plan (04/02/2021 9:43 AM EST): Stable, off therapies. No worsening heartburn recently. Loss of hair 02/06/2017 Assessment & Plan (05/27/2022 8:04 PM EST): Some improvement with RPR and low dose minoxidil. Continue current therapies and f/u with plastic surgery as scheduled. History of sinus tachycardia 02/06/2017 Assessment & Plan (06/02/2024 9:47 AM EDT): Stable on diltiazem, without any recent episodes of sinus tachycardia reported. Continue current therapies and follow-up with cardiology as needed Assessment & Plan (10/28/2023 12:47 PM EDT): Stable on diltiazem, without any recent episodes of sinus tachycardia reported. Continue current therapies and follow-up with cardiology as needed Assessment & Plan (06/01/2023 8:54 AM EDT): Stable on diltiazem, without any recent episodes of sinus tachycardia reported. Continue current therapies and follow-up with cardiology as needed Assessment & Plan (05/27/2022 7:48 PM EST): Stable on diltiazem, without any recent episodes of sinus tachycardia reported. Continue current therapies and follow-up with cardiology as needed Assessment & Plan (04/02/2021 9:45 AM EST): Stable on diltiazem, without any recent episodes of sinus tachycardia reported. Continue current therapies and follow-up with cardiology as needed Assessment & Plan (09/09/2018 8:30 AM EDT): Well managed on diltiazem, without any recent sinus tach reported. Follow-up with Dr. Brothers on yearly basis as scheduled. Migraine without aura and wi thout status migrainosus, not intractable 02/06/2017 Assessment & Plan (06/02/2024 9:43 AM EDT): Migraines are very well-managed with Qulipta 60 mg daily. Fioricet as needed, fairly infrequently. Assessment & Plan (10/28/2023 12:45 PM EDT): Stable and improved on Qulipta, which manages her migraines taking dose every other day. Continue current therapies and f/u with Dr. Ascencio of neurology as scheduled. Assessment & Plan (06/01/2023 8:54 AM EDT): Stable and improved on Qulipta, continue current therapies and f/u with Dr. Ascencio as scheduled. Assessment & Plan (05/27/2022 7:46 PM EST): Worsening headaches since discontinuation of Aimovig due to cost. Patient is treating migraines with OTC NSAIDs, or occasional Fioricet or Percocet. She is planning on trial of triptan for abortive therapy. Continue routine follow up with Dr. Ascencio of neurology. Assessment & Plan (04/02/2021 9:43 AM EST): Relatively well managed on Aimovig, with Fioricet for abortive therapies. Very infrequent use of Percocet. Continue routine follow up with neurology as scheduled. Assessment & Plan (03/18/2019 3:27 PM EST): - trial ketorolac, metoclopramide and diphenhydramine for headache exacerbation now - has fioricet and oxycodone available IF able to resume oral meds Assessment & Plan (12/29/2017 3:25 PM EDT): Long history of migraines, difficult to manage and worsening. Botox injections discouraged due to history of left eye ptosis suspected to be related to last injection. Continue Fioricet and Zomig; f/u with Dr. Ascencio of neurology. Assessment & Plan (07/22/2017 6:17 PM EDT): Frequent migraines, worsneing over past few months. Will do referral to neurology for continued Botox injections and further evaluation. Pt verbalizes understanding and in agreement with plan. Primary insomnia 02/06/2017 Assessment & Plan (06/02/2024 9:43 AM EDT): Patient has had some sleep issues recently resulting in some pretty profound fatigue, although this is more situational due to her 's health issues. Continue temazepam as needed and follow-up if ongoing sleep concerns. Assessment & Plan (10/28/2023 12:45 PM EDT): Continue current regimen, follow-up for any worsening sleep issues. Assessment & Plan (06/01/2023 9:39 AM EDT): Ongoing sleep continuity issues, for which patient would be interested in having something to use as needed. We discussed options, decision made to trial zolpidem sublingual 1.25 mg to take as needed if she has awakened in the night and unable to fall back asleep (as long as >4 hrs of sleep remain). Patient instructed on use, side effects, and adverse effects. F/u by PG message to discuss efficacy. Patient verbalizes understanding and in agreement with plan. Assessment & Plan (05/27/2022 7:51 PM EST): Stable on current therapies with use of temazepam as needed. Assessment & Plan (04/02/2021 9:43 AM EST): Stable on current therapies with use of temazepam as needed. Assessment & Plan (09/09/2018 8:35 AM EDT): Stable on current therapies with use of temazepam as needed. Resolved Problems Problem Noted Date Diagnosed Date Resolved Date Preoperative clearance 10/28/202305/03 Assessment & Plan (10/28/2023 12:48 PM EDT): Generally well female. Relatively safe and low risk for complications related to surgery and local anesthesia. Will fax paperwork to Dr. Gillette as requested. Age-related cataract of right eye 10/28/2023 06/02/2024 Assessment & Plan (10/28/2023 12:46 PM EDT): Planned cataract extraction with Dr. Gillette of ophthalmology on 11/03/2023 Vertigo 05/27/2022 06/01/2023 Assessment & Plan (05/27/2022 7:47 PM EST): Symptoms consistent with vertigo. ?BPPV versus acute labyrinthitis. Will place referral to [facility] for vestibular therapy. Patient in agreement with plan. Iron deficiency anemia due t o chronic blood loss 04/06/2019 04/02/2021 Assessment & Plan (04/06/2019 9:13 AM EST): Patient anemic after diverticular bleed. Is feeling a little bit symptomatic. And having difficulty with her oral iron. Consider IV iron BRBPR (bright red blood per rectum) 03/17/2019 03/19/2019 Assessment & Plan (03/18/2019 3:31 PM EST): - GI consult today - no acute bleeding on colonoscopy - if has precipitous bleeding then CT angiogram - no bleeding right now, monitoring on clear diet and trending h/h - Dr. Alamo also suggested if there is further BRBPR then could consider surgical consult for hemorrhoid Chronic cough 09/09/2018 04/02/2021 Assessment & Plan (04/06/2019 9:12 AM EST): Okay to discontinue Singulair. If within a few weeks the cough recurs, restart the upper airway cough syndrome therapy and restart Singulair. If several months to a years ago by without recurrence and the cough does come back just try the upper airway cough syndrome therapy alone at first. I will defer this management to her PCP. Please feel free to call if you have any further questions. Assessment & Plan (11/18/2018 9:18 AM EDT): Treatment for upper airway cough syndrome: Sudafed (pseudoephedrine) 30mg q6h Chlortrimeton 1 tablet q6h Flonase nasal spray 1 spray per nostril twice a day Do this for three weeks and then change to as needed. We will get full pulmonary function test. If that is normal then we will move to a methacholine challenge test. If there are any abnormalities in the flow volume loop we will consider nasopharyngeal laryngoscopy. Assessment & Plan (09/09/2018 8:34 AM EDT): As above, likely related to underlying allergies. Multiple joint pain 09/09/2018 04/02/19 22 Assessment & Plan (09/09/2018 8:32 AM EDT): Recent episode of acute onset, severe multiple joint pain including shoulders, elbows, and knees. Work-up negative, except for vitamin D deficiency noted. Overall improvement. Continue to monitor and follow-up with EARLENE Guzman as scheduled. Vitamin D deficiency 09/09/2018 022 Assessment & Plan (09/09/2018 8:33 AM EDT): Continue high-dose vitamin D3 replacement at 50,000 IU weekly. Recheck vitamin D level in 2 to 3 months. Acute pain of both shoulders 08/25/2018 04/02/2021 Tendinitis of both elbows 08/25/2018 Acute pain of both knees 08/25/201802/2022 Abnormal sensation in both ears 02/17/2018 04/02/2021 Assessment & Plan (02/17/2018 9:10 AM EST): Reported sensation of water in ears, although exam unremarkable. ?eustachian tube obstruction. Advised to try Flonase twice daily x 2 weeks and f/u as needed. Pt verbalizes understanding and in agreement with plan. Hemorrhoids 01/28/2018 06/01/2023 Nocturnal leg cramps 12/29/2017 022 Assessment & Plan (12/29/2017 3:28 PM EDT): Will check electrolytes today. If normal, may consider magnesium supplements, or taking a small amount of pickle juice, mustard, or tonic water before bedtime to help prevent cramps, or may try OTC Lucrecia's Leg Cramps at nighttime. Will f/u by emessage once results available. Chronic left shoulder pain 12/29/2017 0 04/02/2021 Assessment & Plan (02/17/2018 9:08 AM EST): Acute on chronic left shoulder pain; worsened by recent fall. Would recommend physical therapy and cortisone injection. Pt will make f/u appointment with Dr. Juarez for cortisone injection, encouraged her to consider [facility] or [facility] for therapy of shoulder. Pt verbalizes understanding and in agreement with plan. Assessment & Plan (12/29/2017 3:29 PM EDT): Likely related to recurrent tendonitis/tendinosis. Responsive to Cortisone injections, or could consider physical therapy. F/u with [facility] as needed. Facial paralysis on left side 07/22/2017 04/02/2021 Assessment & Plan (07/22/2017 6:16 PM EDT): Left facial paralysis, ?Oliver's palsy. No red flags for stroke, no other neurologic deficits. Pt does have hx of Lyme disease. Will treat with antiviral, Valtrex. Pt instructed on use, side effects, and adverse effects. Will also do referral to Dr. Ascencio of neurology. Pt verbalizes understanding and in agreement with plan. Palpitations 03/27/2017 04/02/2021 Overview (03/27/2017): Possibly due to atrial tachycardia Balance problem 02/06/2017 09/09/2018 Hearing loss 02/06/2017 04/12/2023 History of Lyme disease 02/06/201704/22 Encounters Date Type Department Care Team Description 12/26/[address] [facility] Cardiovascular Clinic [address] [place] [address] Robert Tristan MD 12/16/2024 Refill [facility] [address] [facility] [address] [place] [address] Loreto Bustillo, ELIZABETH Medication Refill (Diltiazem) 12/08/2024 9:45 AM EDT - 12/08/2024 11:59 PM EDT Hospital Encounter [facility], X-Ray [address] [address] Loreto Bustillo CNP Discharge Disposition: Home or Self Care 11/20/2024 Refill [facility] Internal Medicine [address] [facility] [address] [place] [address] Loreto Bustillo CNP Medication Refill (Famotidine) 11/17/2024 3:00 PM EDT Office Visit [facility] Internal Medicine 14 [facility] [address] [place] [address] Loreto Bustillo CNP Chronic cough (Primary Dx) 11/13/2024 Refill [facility] Internal Medicine [address] [address] Loreto Bustillo CNP Medication Refill (Citalopram) 10/03/2024 Refill [facility] Internal Medicine [address] [address] Loreto Bustillo CNP Medication Refill (Cyclobenzaprine) from Last 3 Months Immunizations Immunization Administration Dates Next Due COVID-19 (Pre-01/11) Moderna Vaccine, mRNA, PF 06/19/2020,05/22/2020 INFLUENZA, SPLIT VIRUS, TRIVALENT PF 01/02/2016, 01/01/2009 INFLUENZA, SPLIT VIRUS, TRIV ALENT W/ PRESERVATIVE IM 01/18/2015,02/29/2012 Influenza High-Dose Quadriva lent Preservative Free IM 01/04/2023,01/05/2022 Influenza High-Dose Trivalen t Preservative Free IM 12/23/2023,12/28/2018 Influenza Quadrivalent Adjuv anted Preservative Free IM 01/12/2021 Influenza Quadrivalent Preservative Free IM 12/20,12/29/2016,11/28/2010 Influenza Split (Incl. Purif ied Surface Antigen) 12/05/2009 Influenza trivalent preserva tive free intradermal 12/22/2013,12/19/2012 Influenza, Unspecified Formulation 12/21/2019, Pneumococcal conjugate PCV13 09/08/2018 Pneumococcal polysaccharide PPSV23 01/19/2020 RSV Vaccine (monovalent, adjuvanted) 03/03/2023 Tdap 05/07/2023,03/09/2013 Zoster live 03/04/2012 Zoster recombinant 03/13/2019,01/12/2019 Family History Medical History Relation Comments HIV Brother Liver cancer Brother Early menopause Daughter Stomach cancer Father Depression Maternal Half-Brother Autoimmune disease Maternal Half-Sister Depression Mother Suicide Mother Breast cancer Niece Heart attack Sister No Known Problems Son Relation Status Comments Brother Daughter Alive Father (Age 87) Maternal Grandfather Maternal Grandmother Maternal Half-Brother Alive Maternal Half-Sister Alive Mother (Age 45) Niece Alive Paternal Grandfather Paternal Grandmother Sister Alive Son Alive Social History Tobacco Use Types Packs/Day Years Used Date Smoking Tobacco: Never Passive Smoke Exposure: Never Smokeless Tobacco: Never Tobacco Cessation:Counseling Given: Not Answered Alcohol Use Standard Drinks/Week Comments Yes 0 [...] file Not on file Not on file Last Filed Vital Signs Vital Sign Reading Time Taken Comments Blood Pressure 110/70 11/17/2024 2:55 PM EDT Pulse 84 11/17/2024 2:55 PM EDT Temperature 36.5 C (97.7 F) 11/17/2024 2:55 PM EDT Respiratory Rate 20 11/17/2024 2:55 PM EDT Oxygen Saturation 100% 11/17/2024 2:55 PM EDT Inhaled Oxygen Concentration - - Weight 69.9 kg (154 lb) 11/17/2024 2:55 PM EDT Height 160 cm (5' 3 ) 09/10/2024 11:32 AM EDT Body Mass Index 27.28 09/10/2024 11:32 AM EDT Plan of Treatment Upcoming Encounters Date Type Department Care Team ([facility] st Contact Info) Description 12/26/2024 11:00 AM EDT Office Visit [facility] Cardiovascular Clinic [address] [place] [address] Robert Tristan MD [address] [place] [address] [email or web address] 01/09/2025 10:20 AM EDT Office Visit [facility]ovascular Clinic [address] [place] [address] Robert Tristan MD [address] [place] [address] [email or web address] 06/06/2025 9:00 AM EDT Office Visit [facility] [address] [facility] [address] [place], [place] [id number] Loreto Bustillo, ELIZABETH 14 [facility] [address] [place] [address] Health Maintenance Due Date Last Done Comments COLOGUARD 1998 FIT TEST 1998 FOBT 1998 SIGMOIDOSCOPY 1998 VIRTUAL COLONOSCOPY 1998 COVID-19 VACCINE ( season) 2025 12/06/2024, 12/01/2023, 06/15/2023, Additional history exists LIPID PANEL 05/08/2025 05/08/2024, 10/0 03/2023, 07/25/2022, Additional history exists BLOOD PRESSURE 05/19/2025 11/17/2024 DEPRESSION SCREENING 11/17/2025 11/17/2024, 11/18/19 25 MAMMOGRAM 07/07/2026 07/07/2024, 03/24, 03/13/2022, Additional history exists COLONOSCOPY 02/10/2032 02/09/2022, 02/20, 10/01/2011 COLORECTAL CANCER SCREENING 02/10/2032 Adult Td,Tdap Booster 05/07/2033 05/07/2023, 013 ZOSTER VACCINES Completed 03/13/2019, 12/21, 03/04/2012 PNEUMOCOCCAL VACCINES (50+ years) Completed 01/19/2020, 09/08/2018 HEPATITIS C SCREENING Completed 03/24/2021, 022 OSTEOPOROSIS SCREENING INITIAL (ONE-TIME) Completed 08/19/2022, 11/16/2018 RSV VACCINE Completed 03/03/2023 SMOKING STATUS SCREENING (Once After 26 Yrs) Completed 11/17/2024 INFLUENZA VACCINE Completed 12/06/2024, , 01/04/2023, Additional history exists HEPATITIS A VACCINES Aged Out No long er eligible based on patient's age to complete this topic HIB VACCINES Aged Out No longer eligi ble based on patient's age to complete this topic MENINGOCOCCAL VACCINES (ACWY) Aged Out No longer eligible based on patient's age to complete this topic MENINGOCOCCAL VACCINES (B) Aged Out N o longer eligible based on patient's age to complete this topic Medical Devices Implanted Type Area Chuck Splitter Device Identifier Shelf Expiration Date Model / Serial / Lot Bone Plate Lt Fusion Lateral Ankle Tt - [id number] Implanted:Qty: 1 on 02/23/2024 by Donald Gonzales MD at [facility] Left: Ankle [employer] [id number] 09 / / Screw Spine 3.5x10mm Plate R3con Locking - [id number] Implanted:Qty: 2 on 02/23/2024 by Donald Gonzales MD at [facility] Left: Ankle [employer] [id number] 10 / / Screw Plate 3.5x14mm R3con Locking - [id number] Implanted:Qty: 3 on 02/23/2024 by Donald Gonzales MD at [facility] Left: Ankle [employer] [id number] 14 / / Screw Spine 3.5x16mm Plate R3con Locking - [id number] Implanted:Qty: 1 on 02/23/2024 by Donald Gonzales MD at [facility] Left: Ankle [employer] [id number] 16 / / Screw Plate 3.5x12mm Nonlocking R3con - [id number] Implanted:Qty: 1 on 02/23/2024 by Donald Gonzales MD at [facility] Left: Ankle [employer] [id number] 12 / / Plate Screw Non Locking R3con 2.7x15mm - [id number] Implanted:Qty: 1 on 02/23/2024 by Donald Gonzales MD at [facility] Left: Ankle [employer] [id number] 15 / / Screw Mini Monster Cannulated Long Threaded Headed 4x40mm - [id number] Implanted:Qty: 1 on 02/23/2024 by Donald Gonzales MD at [facility] Left: Ankle [employer] [id number] / / Procedures Procedure Name Priority Date/Time Associated Diagnosis Comments XR CHEST PA AND LATERAL 2 VIEWS Routine 12/08/2024 10:09 AM EDT Chronic cough BI MAMMOGRAM SCREENING WITH TOMOSYNTHESIS WITH CAD (BILATERAL) Routine 07/07/2024 2:09 PM EDT Visit for screening mammogram LIPID PANEL Routine 05/08/2024 9:01 AM EST Encounter for Medicare annual wellness exam Mixed hyperlipidemia BD DXA AXIAL (SPINE) WITH HIP Routine 08/19/2022 9:11 AM EDT Osteopenia of multiple sites ENDOSCOPY, COLON 02/09/2022 11:5 9 AM EST HEPATITIS C ANTIBODY, QUALITATIVE Routine 03/24/2021 8:23 AM EST Laboratory examination ordered as part of a routine general medical examination Need for hepatitis C screening test from Last 3 Months or Most Recently Relevant to Health Maintenance Results * XR CHEST PA AND LATERAL 2 VIEWS (12/08/2024 10:09 AM EDT) Anatomical Region Laterality Modality Chest Computed Radiogr aphy 12/08/2024 10:3 7 AM EDT Impressions 12/08/2024 10:38 AM EDT No acute cardiopulmonary abnormality. In particular, no evidence of pneumonia. Narrative 12/08/2024 10:38 AM EDT XR CHEST PA AND LATERAL 2 VIEWS Referring clinician's provided indication for this examination in Epic: Cough; Chronic cough, worsened after eating but no improvement with PPI COMPARISON: XR CHEST PA AND LATERAL 2 VIEWS FINDINGS: Devices/Tubes/Lines: None. Lungs: Normal. The lungs are clear. No focal consolidation or pulmonary edema. Pleura: Normal. No pleural effusion or pneumothorax. Heart/Mediastinum: Normal heart and mediastinum. Bones/Soft Tissues: Cervical hardware, left humeral head screw, mild degenerative changes. Procedure Note Judy Estrada MD - 12/08/2024 XR CHEST PA AND LATERAL 2 VIEWS Referring clinician's provided indication for this examination in [facility]:Cough; Chronic cough, worsened after eating but no improvement with PPI COMPARISON: XR CHEST PA AND LATERAL 2 VIEWS FINDINGS: Devices/Tubes/Lines: None. Lungs: Normal. The lungs are clear. No focal consolidation or pulmonaryedema. Pleura: Normal. No pleural effusion or pneumothorax. Heart/Mediastinum: Normal heart and mediastinum. Bones/Soft Tissues: Cervical hardware, left humeral head screw, milddegenerative changes. IMPRESSION: No acute cardiopulmonary abnormality. In particular, no evidence ofpneumonia. Loreto Bustillo [employer] IMG XR CHEST Final Result * BI MAMMOGRAM SCREENING WITH TOMOSYNTHESIS WITH CAD (BILATERAL) (07/07/2024 2:09 PM EDT) Anatomical Region Laterality Modality Breast Left, Breast Right, Breast Bilateral Bila teral Mammography 07/10/2024 8:01 AM EDT Impressions 07/10/2024 8:06 AM EDT No mammographic evidence of malignancy in either breast. Annual screening mammography is recommended. BI-RADS 1 NEGATIVE The patient will be notified of the results and recommendations. Narrative 07/10/2024 8:06 AM EDT BI MAMMOGRAM SCREENING WITH TOMOSYNTHESIS WITH CAD (BILATERAL) Additional patient information: Screening. COMPARISON: Comparison is made with relevant prior imaging. Breast composition: The breasts are heterogeneously dense, which may obscure small masses. FINDINGS: No abnormal masses, suspicious calcifications, or other significant findings are identified mammographically in either breast. Procedure Note Fatemeh Donaldson MD - 07/10/2024 BI MAMMOGRAM SCREENING WITH TOMOSYNTHESIS WITH CAD (BILATERAL) Additional patient information: Screening. COMPARISON: Comparison is made with relevant prior imaging. Breast composition: The breasts are heterogeneously dense, which mayobscure small masses. FINDINGS: No abnormal masses, suspicious calcifications, or other significantfindings are identified mammographically in either breast. IMPRESSION: No mammographic evidence of malignancy in either breast. Annual screening mammography is recommended. BI-RADS 1 NEGATIVE The patient will be notified of the results and recommendations. Loreto Bustillo [employer] IMG MG EXAMS Final Result * (ABNORMAL) Lipid panel (05/08/2024 9:01 AM EST) HDL 101 mg/dL [facility] Comment: Interpretation <40 mg/dL: Low HDL cholesterol (major risk factor for CHD) Greater than or equal to 60 mg/dL: High HDL cholesterol ( negative risk factor for CHD) HDL - cholesterol is affected by a number of factors, e.g. smoking, excerise, hormones, sex and age. CHOLESTEROL 176 0 - 240 mg/dL [facility] TRIGLYCERIDES 79 30 - 160 mg/dL [facility] LDL 59 50 - 129 mg/dL [facility] Comment: LDL levels in terms of risk for coronary heart disease: <100 mg/dL: Optimal 100-129 mg/dL: Near or above optimal 130-159 mg/dL: Borderline high 160-189 mg/dL: High >190 mg/dL: Very High CARDIAC RISK RATIO 1.7(L) 3.3 - 4.4 C [facility] Blood 05/08/2024 9:01 AM EST 05/08/2024 9:06 AM EST Loreto Bustillo [facility] LAB BLOOD ORDERABLES F inal Result [address] [address] * BD DXA AXIAL (SPINE) WITH HIP (08/19/2022 9:11 AM EDT) Anatomical Region Laterality Modality Bone Density Bone Density 08/19/2022 1:14 PM EDT Impressions 08/19/2022 1:15 PM EDT Osteopenia Reference Information: The T-score is the number of standard deviations above or below the standard which is normal for young adults at their peak bone mineral density. The World Health Organization (WHO) interprets the T-scores as follows: Above -1 Normal bone density Between -1 and -2.5 Osteopenia Equal to / or below -2.5 Osteoporosis As a practical clinical guideline, osteopenia may be graded as follows: Mild -1 through -1.5 Moderate -1.6 through -2.0 Severe -2.1 through -2.4 References: 1. NIH Osteoporosis and Related Bone Diseases http://www.osteo.org 2. International Society for Clinical Densitometry http://www.iscd.org 3. National Osteoporosis Foundation http://www.nof.org Narrative 08/19/2022 1:15 PM EDT STUDY: DUAL ENERGY X-RAY ABSORPTIOMETRY / DXA REASON FOR EXAM: Female, 67 years old. TECHNIQUE: Bone Mineral Density (BMD) measurements of the lumbar spine and left hip were obtained. COMPARISON: 11/16/2018 FINDINGS: L1-L4 T score: -2.1. This corresponds to osteopenia This represents a 5.3 % increase in bone density compared with prior exam from 11/16/2018. Left femoral neck T score: -1.4. This corresponds to osteopenia Left total hip T score: -1.1. This corresponds to osteopenia This represents a 3.1 % increase in bone density compared with prior exam from 11/16/2018. FRAX score: 10 year risk of major osteoporotic fracture 9.7%, 10 year risk of hip fracture 1.2% Procedure Note Javid Hein MD - 08/19/2022 STUDY: DUAL ENERGY X-RAY ABSORPTIOMETRY / DXA REASON FOR EXAM: Female, 67 years old. TECHNIQUE: Bone Mineral Density (BMD) measurements of the lumbar spineand left hip were obtained. COMPARISON: 11/16/2018 FINDINGS: L1-L4 T score: -2.1. This corresponds to osteopenia This represents a 5.3 % increase in bone density compared with prior examfrom 11/16/2018. Left femoral neck T score: -1.4. This corresponds to osteopenia Left total hip T score: -1.1. This corresponds to osteopenia This represents a 3.1 % increase in bone density compared with prior examfrom 11/16/2018. FRAX score: 10 year risk of major osteoporotic fracture 9.7%, 10 year riskof hip fracture 1.2% IMPRESSION: Osteopenia Reference Information: The T-score is the number of standard deviations above or below thestandard which is normal for young adults at their peak bone mineraldensity. The World Health Organization (WHO) interprets the T-scores asfollows: Above -1 Normal bone density Between -1 and -2.5 Osteopenia Equal to / or below -2.5 Osteoporosis As a practical clinical guideline, osteopenia may be graded as follows: Mild -1 through -1.5 Moderate -1.6 through -2.0 Severe -2.1 through -2.4 References: 1. NIH Osteoporosis and Related Bone Diseases http://www.osteo.org 2. International Society for Clinical Densitometry http://www.iscd.org 3. National Osteoporosis Foundation http://www.nof.org Lroeto Bustillo [facility] BD BONE DENSITY DE XA Final Result * ENDOSCOPY, COLON (02/09/2022 11:59 AM EST) Narrative Transcriptions Omkar Walton MD - 02/09/2022 11:59 AM EST Patient Name: Jeanne London Attending MD:: OMKAR WALTON MD Procedure Date: 02/09/2022 11:59AM Date of : 1955 Age: 66 Admit Type: Outpatient Gender: Female Room: [facility] 04 Referring MD: Loreto Bustillo Exam Type: Colonoscopy Medications: Monitored Anesthesia Care Procedure: Informed consent was obtained from the patientafter discussion of the indications, limitations, alternatives, benefits, and risks of the procedure. Risks specifically discussed include but are not limited to medication reactions, missed lesions, bleeding, perforation, or the need for emergent surgery. Throughout the procedure, the patient's blood pressure, pulse, end-tidal CO2, and oxygensaturations were monitored continuously. The Olympus adult variable colonoscope CF-OT910R #5 was introduced through the anus and advanced to the terminal ileum, with identification of theappendiceal orifice and IC valve. The colonoscopy was performed without difficulty. The patient tolerated the procedure well. The quality of the bowelpreparation was excellent. The terminal ileum, ileocecal valve, appendiceal orifice, and rectum werephotographed. Complications: No immediate complications. Estimated blood loss:None. Findings: The terminal ileum appeared normal. This wasbiopsied with a cold forceps for histology. Examination of the right colon was repeated in retroflexion and again in NBI. Retroflexion wasalso performed in the rectum. Multiple diverticula were found in the sigmoidcolon and descending colon. A 4 mm polyp was found in the hepatic flexure. The polyp was sessile. The polyp was removed with acold snare. Resection and retrieval were complete. Internal hemorrhoids were found duringretroflexion. The hemorrhoids were small. Biopsies for histology were taken with a coldforceps from the entire colon for evaluation of microscopic colitis. Impression: - The examined portion of the ileum was normal. Biopsied. - Diverticulosis in the sigmoid colon and in the descending colon. - One 4 mm polyp at the hepatic flexure, removedwith a cold snare. Resected and retrieved. - Internal hemorrhoids. - Biopsies were taken with a cold forceps from the entire colon for evaluation of microscopiccolitis. Recommendation: - Patient has a contact number available for emergencies. The signs and symptoms of potential delayed complications were discussed with thepatient. Return to normal activities tomorrow. Written discharge instructions were provided to thepatient. - Await pathology results. - Repeat colonoscopy in 5 years for surveillance. - Return to GI office as previously scheduled. Omkar Walton OMKAR WALTON MD 02/09/2022 12:45:15 PM This report has been signed electronically. Number of Addenda: 0 Note Initiated On: 02/09/2022 11:59 AM Procedure Code(s): --- Professional --- 49619, Colonoscopy, flexible; with removal of tumor(s), polyp(s), or other lesion(s) by snare technique [id number], 59, Colonoscopy, flexible; with biopsy, single or multiple --- Technical --- 91769, Colonoscopy, flexible; with removal of tumor(s), polyp(s), or other lesion(s) by snare technique [id number], 59, Colonoscopy, flexible; with biopsy, single or multiple CPT copyright 2020 [employer]. All rights reserved. The codes documented in this report are preliminary and upon educational institution president reviewmay be revised to meet current compliance requirements. Procedure Date: 02/09/2022 11:59:[address] [place] [address] [id number] Loreto Bustillo CNP GI PROCEDURE ORDERABLE S Final Result * Hepatitis C antibody, qualitative (03/24/2021 8:23 AM EST) HCV NON-REACTIV E NON-REACTI VE [facility] Blood 03/24/2021 8:23 AM EST 03/24/2021 8:29 AM EST Loreto Bustillo [employer] [facility] [facility] LAB BLOOD ORDERABLES F inal Result [facility] [address] [place] [address] from Last 3 Months or Most Recently Relevant to Health Maintenance Insurance MEDICARE PART A & B MEDICARE SUPPLEMENT MEDICARE PART A & B MEDICARE SUPPLEMENT MEDICARE PART A & B [facility] MEDICARE SUPPLEMENT MEDICARE PART A & B Member Subscriber Plan / Payer (Ef fective 2018-Present) Name:Jeanne London Member ID:[id number] Relation to Subscriber:Self Name:Jeanne London Subscriber ID:[id number] Payer ID:[id number] Group ID:Not on file Type:Medicare Address: [employer] [address] MEDICARE SUPPLEMENT MEDICARE SUPPLEMENT MEDICARE PART A & B MEDICARE SUPPLEMENT MEDICARE PART A & B Member Subscriber Plan / Payer (Ef fective 2018-Present) Name:Jeanne London Member ID:[id number] Relation to Subscriber:Self Name:Jeanne London Subscriber ID:[id number] Payer ID:[id number] Group ID:Not on file Type:Medicare Address: [employer] [address] [place] [id number] [facility] MEDICARE SUPPLEMENT MEDICARE PART A & B [facility] MEDICARE SUPPLEMENT MEDICARE PART A & B [facility] MEDICARE [place]LE[place] [address] [place] [phone] Advance Directives For more information, please contact: [phone] (9AM - 5PM [place], Wednesday-Wednesday) * Full Code (Confirmed) (Latest Code Status on File) Date Activated Date Inactivated Comments 03/18/2019 12:30 AM 03/19/2019 4:24 PM Question Answer Comments Code Status Confirmed With: Patient Code Status Communicated To: Inpatient Attending Care Teams Controls Engineer Relationship Specialty Start Date End Date Loreto Bustillo CNP [facility] [employer] [address] [place] [phone] PCP - General 01/12/17 Loreto Bustillo CNP [address] [place] [address] [place] [address] Historical LMR Provider 01/10/17 Diann Juarez MD [address] [place] [address] [place] [address] Historical LMR Provider 01/10/17 Jacky Chan MD [address] [place] [address] [place] [address] [email or web address] Historical LMR Provider 01/10/17 Fariha Briseno NP [address] [place] [address] [place] [address] Historical LMR Provider 01/10/17 Tami Greenberg MD [address] [place] [address], [address] [place] [address] [email or web address] Historical LMR Provider 01/10/17 Loreto Bustillo, ELIZABETH [address] [place] [address] [address] [place] [address] [email or web address] Insurance Assigned Provider 06/25/24 Additional Source Comments The information contained in this document represents components of the legal health record. It is not the complete legal health record.[facility]
--- OUTSIDE RECORDS SUMMARY | 2024-12-26 10:48 | XMS_ITS | Encounter Summary ---
Author Organization [facility] Address [address] [place] [address] [place] [address] Phone Care Team Providers Care Lead Engineer Name Role Phone Loreto Bustillo CNP Unavailable [phone] Diann Juarez MD Unavailable [phone] Jacky Chan MD Unavailable Fariha Briseno NP Unavailable Tami Greenberg MD Unavailable Jonathan Alonzo MD Unavailable Unavailable Jim Durant MD Unavailable [phone] Marcos Sanz MD Unavailable Loreto Bustillo CNP Primary Care Provider Diann Juarez MD Unavailable [phone] Diann Juarez MD Unavailable [phone] Loreto Bustillo CNP Unavailable [phone] Encounter Details Date Type Department Care Team (Late st Contact Info) Description 02/02/2017 Ancillary Orders [facility] [address] [place] [address] Jim Durant MD [address] [place], [place] [phone] Breast screening Social History Tobacco Use Types Packs/Day Years Used Date Smoking Tobacco: Never Smokeless Tobacco: Never Alcohol Use Standard Drinks/Week Comments Yes 1 (1 standard drink = 0.6 oz pur e alcohol) twice a year Comments Unknown Sex and Gender Information Value Date Recorded Sex Assigned at Female 01/14/2018 5:23 PM EDT Legal Sex Female 9:57 PM EDT Gender Identity Female 01/14/2018 5:23 PM EDT Sexual Orientation Not on file documented as of this encounter Plan of Treatment Upcoming Encounters Date Type Department Care Team (Late st Contact Info) Description 12/26/2024 11:00 AM EDT Office Visit [facility] [address] [place] [address] Robert Tristan MD [address] [place] [address] [email or web address] 01/09/2025 10:20 AM EDT Office Visit [facility] [address] [place] [address] Robert Tristan MD [address] [place] [address] [email or web address] 06/06/2025 9:00 AM EDT Office Visit [facility] [place] [facility] 14 [facility] [address] [place] [address] Loreto Bustillo, TOOLING ENGINEERING TECH 14 [facility] [address] [place] [address] [email or web address] documented as of this encounter Results * BI MAMMOGRAM SCREENING WITH TOMOSYNTHESIS WITH CAD (BILATERAL) (03/04/2018 8:16 AM EST) Anatomical Region Laterality Modality Breast Left, Breast Right, Breast Bilateral Bila teral Mammography 03/04/2018 9:22 AM EST Impressions 03/04/2018 9:35 AM EST No mammographic evidence of malignancy. Recommend routine annual surveillance. BI-RADS CATEGORY: 2 - Benign finding. DENSITY: The breast tissue is heterogeneously dense, an appearance which lowers the sensitivity of mammography. POS - CDHMAM2 Narrative 03/04/2018 9:35 AM EST 62-year-old female with no current breast symptoms. Comparison made to previous on 02/02/2017 and as far back as 01/19/2012. Interpretation made in conjunction with computer-aided detection and tomosynthesis. The breasts are heterogeneously dense, which may obscure small masses. Stable left breast biopsy marker, bilateral vascular calcifications and small ovoid low- density mass in the central left breast on the cc view. There are no suspicious masses, areas of architectural distortion, or suspicious clusters of microcalcifications. Procedure Note Jigna Rhodes MD - 03/04/2018 62-year-old female with no current breast symptoms. Comparison made toprevious on 02/02/2017 and as far back as 01/19/2012. Interpretation madein conjunction with computer-aided detection and tomosynthesis. The breasts are heterogeneously dense, which may obscure small masses.Stable left breast biopsy marker, bilateral vascular calcifications andsmall ovoid low- density mass in the central left breast on the cc view. There are no suspicious masses, areas of architectural distortion, orsuspicious clusters of microcalcifications. IMPRESSION: No mammographic evidence of malignancy. Recommend routine annualsurveillance. BI-RADS CATEGORY: 2 - Benign finding. DENSITY: The breast tissue is heterogeneously dense, an appearance whichlowers the sensitivity of mammography. POS - CDHMAM2 Jim Durant MD IMG MG EXAMS Final Result documented in this encounter Visit Diagnoses Diagnosis Breast screening Breast screening, unspecified Breast screening Breast screening, unspecified Hyperlipidemia, unspecified hyperlipidemia type- Primary Essential hypertension Unspecified essential hypertension Coronary artery calcification seen on CT scan Mitral annular calcification Mitral valve disorders documented in this encounter Additional Health Concerns Infection Onset Date Last Indicated Resolved Time CoV-Risk 06/02/2021 06/02/2021 06/13/2021 1:23 AM EDT documented as of this encounter Care Teams Lead Engineer Relationship Specialty Start Date End Date Loreto Bustillo, TOOLING ENGINEERING TECH 14 [facility] [address] [place] [address] PCP - General 01/12/17 Loreto Bustillo, ELIZABETH [address] [place] [address] Historical LMR Provider 01/10/17 Diann Juarez MD [address] [place] [address] [email or web address] Historical LMR Provider 01/10/17 Jacky Chan MD [address] [place] [address] [email or web address] Historical LMR Provider 01/10/17 Fariha Briseno NP [address] [place] [address] [email or web address] Historical LMR Provider 01/10/17 Tami Greenberg MD [address] [place] [address] [email or web address] Historical LMR Provider 01/10/17 Jonathan Alonzo MD Historical LMR Provider 01/10/17 03/29/21 Jim Durant MD [address] [place] [address] Historical LMR Provider 01/10/17 2 Marcos Sazn MD [address] [address] [email or web address] Historical LMR Provider 01/10/17 03/29/21 Diann Juarez MD [address] [place] [address] [email or web address] Insurance Assigned Provider 06/28/1903/28/22 Diann Juarez MD [address] [place] [address] [email or web address] Insurance Assigned Provider 06/26/2306/25/24 Loreto Bustillo CNP [address] [place] [address] [email or web address] Insurance Assigned Provider 06/25/24 documented as of this encounter Additional Source Comments The information contained in this document represents components of the legal health record. It is not the complete legal health record.[facility]
--- OUTSIDE RECORDS SUMMARY | 2024-12-26 10:48 | XMS_ITS | Encounter Summary ---
Author Organization [facility] Address [address] [place] [address] [place] [address] Phone Care Team Providers Care Cell Room Operator Name Role Phone Loreto Bustillo CNP Unavailable Diann Juarez MD Unavailable Unknown, Unknown Primary Care Provider Jacky Evans MD Unavailable Fariha Briseno NP Unavailable Tami Greenberg MD Unavailable Jonathan Alonzo MD Unavailable Unavailable Jim Durant MD Unavailable [phone] PorMarcos mart MD Unavailable Loreto Bustillo CNP Primary Care Provider Diann Juarez MD Unavailable Diann Juarez MD Unavailable Loreto Bustillo CNP Unavailable [phone] Encounter Details Date Type Department Care Team (Late st Contact Info) Description 01/09/2017 Ancillary Orders [facility] [address] [place] [address] Jim Durant MD [address] [place] [address] History of screening mammography Social History Tobacco Use Types Packs/Day Years Used Date Smoking Tobacco: Never Assessed Comments Unknown Sex and Gender Information Value Date Recorded Sex Assigned at Female 01/14/2018 5:23 PM EDT Legal Sex Female 9:57 PM EDT Gender Identity Female 01/14/2018 5:23 PM EDT Sexual Orientation Not on file documented as of this encounter Plan of Treatment Upcoming Encounters Date Type Department Care Team (Late st Contact Info) Description 12/26/2024 11:00 AM EDT Office Visit [facility] [address] [place] [address] Robert Tristan MD [address] [address] [email or web address] 01/09/2025 10:20 AM EDT Office Visit [facility] [address] [place] [address] Robert Tristan MD [address] [address] [email or web address] 06/06/2025 9:00 AM EDT Office Visit [facility] [place] [facility] 14 [facility] [address] [place] [address] Loreto Bustillo, APPLICATION INTEGRATOR 14 [facility] [address] [place] [address] [email or web address] Pending Results Name Type Priority Associated Diagnoses Date /Time Mammogram Screening (Bilateral) Imaging Routine History of screening mammography 02/02/2017 7:50 AM EST Scheduled Orders Name Type Priority Associated Diagnoses Orde r Schedule Mammogram Screening (Bilateral) Imaging Routine History of screening mammography Expected: 01/09/2017, Expires: 01/09/2019 documented as of this encounter Visit Diagnoses Diagnosis History of screening mammography Hyperlipidemia, unspecified hyperlipidemia type- Primary Essential hypertension Unspecified essential hypertension Coronary artery calcification seen on CT scan Mitral annular calcification Mitral valve disorders documented in this encounter Additional Health Concerns Infection Onset Date Last Indicated Resolved Time CoV-Risk 06/02/2021 06/02/2021 06/13/2021 1:23 AM EDT documented as of this encounter Care Teams Cell Room Operator Relationship Specialty Start Date End Date Unknown, Unknown, [address] [place] [address] PCP - General 01/09/17 01/11/17 Loreto Bustillo, ELIZABETH [address] [place] [address] PCP - General 01/12/17 Loreto Bustillo, ELIZABETH [address] [place] [address] Historical LMR Provider 01/10/17 Diann Juarez MD [address] [place] [address] [email or web address] Historical LMR Provider 01/10/17 Jacky Chan MD [address] [place] [address] [email or web address] Historical LMR Provider 01/10/17 Fariha Briseno NP [address] [place] [address] [email or web address] Historical LMR Provider 01/10/17 Tami Greenberg MD [address] [place] [address] [email or web address] Historical LMR Provider 01/10/17 Jonathan Alonzo MD Historical LMR Provider 01/10/17 03/29/21 Jim Durant MD [address] [place] [address] Historical LMR Provider 01/10/17 2 Marcos Sanz MD [address] [place] [address] [email or web address] Historical LMR Provider 01/10/17 03/29/21 Diann Juarez MD 14 [facility] [address] [place] [address] [email or web address] Insurance Assigned Provider 06/28/1903/28/22 Diann Juarez MD [address] [place] [address] Insurance Assigned Provider 06/26/2306/25/24 Loreto Bustillo, ELIZABETH [address] [address] Insurance Assigned Provider 06/25/24 documented as of this encounter Additional Source Comments The information contained in this document represents components of the legal health record. It is not the complete legal health record.[facility]
--- OUTSIDE RECORDS SUMMARY | 2024-12-26 10:48 | XMS_ITS | Encounter Summary ---
Author Organization [facility] Address [address] [place] [address] [place] [address] Phone Care Team Providers Care Thimble Press Operator Name Role Phone Loreto Bustillo CNP Unavailable Diann Juarez MD Unavailable [phone] Jacky Chan MD Unavailable Fariha Briseno NP Unavailable Tami Greenberg MD Unavailable Loreto Bustillo CNP Primary Care Provider Diann Juarez MD Unavailable [phone] Diann Juarez MD Unavailable [phone] Loreto Bustillo CNP Unavailable [phone] Encounter Details Date Type Department Care Team (Late st Contact Info) Description 12/23/2021 Procedure Pass [facility], [address] [address] Social History Tobacco Use Types Packs/Day Years [...] Description 12/26/2024 11:00 AM EDT Office Visit [facility] [address] [place] [address] Robert Tristan MD [address] [address] [email or web address] 01/09/2025 10:20 AM EDT Office Visit [facility] [address] [place] [address] Robert Tristan MD [address] [address] [email or web address] 06/06/2025 9:00 AM EDT Office Visit [facility] 14 [facility] [address] [place] [address] Loreto Bustillo CNP [address] [address] documented as of this encounter Visit Diagnoses Not on filedocumented in this encounter Additional Health Concerns Assessment Noted Time PHQ-2 Depression Total Score: 0 04/02/19 22 8:45 AM EST documented as of this encounter Care Teams Thimble Press Operator Relationship Specialty Start Date End Date Loreto Bustillo CNP 14 [facility] [address] [place] [address] PCP - General 01/12/17 Loreto Bustillo CNP [address] [place] [address] Historical LMR Provider 01/10/17 Diann Juarez MD [address] [place] [address] [email or web address] Historical LMR Provider 01/10/17 Jacky Chan MD [address] [place] [address] [email or web address] Historical LMR Provider 01/10/17 Fariha Briseno NP [address] [place] [address] [email or web address] Historical LMR Provider 01/10/17 Tami Greenberg MD [address] [place] [address] [email or web address] Historical LMR Provider 01/10/17 Diann Juarez MD [address] [place] [address] [email or web address] Insurance Assigned Provider 06/28/1903/28/22 Diann Juarez MD [address] [place] [address] Insurance Assigned Provider 06/26/2306/25/24 Loreto Bustillo CNP [address] [place] [address] Insurance Assigned Provider 06/25/24 documented as of this encounter Additional Source Comments The information contained in this document represents components of the legal health record. It is not the complete legal health record.[facility]
--- OUTSIDE RECORDS SUMMARY | 2024-12-26 10:48 | XMS_ITS | Encounter Summary ---
Author Organization [facility] Address [address] [place] [address] [place] [address] Phone Care Team Providers Care Software Development Test Engineer Name Role Phone Loreto Bustillo CNP Unavailable [phone] Diann Juarez MD Unavailable Jacky Chan MD Unavailable [phone] Fariha Briseno NP Unavailable Tami Greenberg MD Unavailable Jonathan Alonzo MD Unavailable Unavailable Jim Durant MD Unavailable [phone] Marcos Sanz MD Unavailable [phone] Loreto Bustillo CNP Primary Care Provider Diann Juarez MD Unavailable [phone] Diann Juarez MD Unavailable [phone] Loreto Bustillo CNP Unavailable [phone] Encounter Details Date Type Department Care Team (Late st Contact Info) Description 10/03/2018 Procedure Pass [facility], [address] [phone] Social History Tobacco Use Types Packs/Day Years [...] Description 12/26/2024 11:00 AM EDT Office Visit [facility] [address] [place] [address] Robert Tristan MD [address] [address] [email or web address] 01/09/2025 10:20 AM EDT Office Visit [facility] [address] [place] [address] Robert Tristan MD [address] [address] [email or web address] 06/06/2025 9:00 AM EDT Office Visit [facility] [place] [facility] [address] [address] Loreto Bustillo CNP [address] [address] documented as of this encounter Visit Diagnoses Not on filedocumented in this encounter Additional Health Concerns Infection Onset Date Last Indicated Resolved Time CoV-Risk 06/02/2021 06/02/2021 06/13/2021 1:23 AM EDT documented as of this encounter Care Teams Software Development Test Engineer Relationship Specialty Start Date End Date Loreto Bustillo CNP [address] [address] PCP - General 01/12/17 Loreto Bustillo CNP 14 [facility] [address] [place] [address] [email or web address] Historical LMR Provider 01/10/17 Diann Juarez MD [address] [place] [address] [place] [address] [email or web address] Historical LMR Provider 01/10/17 Jacky Chan MD [address] [place] [address] [place] [address] [email or web address] Historical LMR Provider 01/10/17 Fariha Briseno NP [address] [place] [address] [email or web address] Historical LMR Provider 01/10/17 Tami Greenberg MD [address] [place] [address] [email or web address] Historical LMR Provider 01/10/17 Jonathan Alonzo MD Historical LMR Provider 01/10/17 03/29/21 Jim Durant MD [address] [place] [address] Historical LMR Provider 01/10/17 2 Marcos Sanz MD [address] [place] [address] [email or web address] Historical LMR Provider 01/10/17 03/29/21 Diann Juarez MD [address] [place] [address] [place] [address] [email or web address] Insurance Assigned Provider 06/28/1903/28/22 Diann Juarez MD [address] [place] [address] [email or web address] Insurance Assigned Provider 06/26/2306/25/24 Loreto Bustillo CNP [address] [place] [address] [email or web address] Insurance Assigned Provider 06/25/24 documented as of this encounter Additional Source Comments The information contained in this document represents components of the legal health record. It is not the complete legal health record.[facility]
--- OUTSIDE RECORDS SUMMARY | 2024-12-26 10:48 | XMS_ITS | Encounter Summary ---
Author Organization [facility] Address [address] [place] [address] [place] [address] Phone Care Team Providers Care Ceo Na Name Role Phone Loreto Bustillo CNP Unavailable [phone] Diann Juarez MD Unavailable aJcky Chan MD Unavailable [phone] Fariha Briseno NP Unavailable [phone] Tami rGeenberg MD Unavailable [phone] Loreto Bustillo CNP Primary Care Provider Diann Juarez MD Unavailable [phone] Diann Juarez MD Unavailable [phone] Loreto Bustillo CNP Unavailable Encounter Details Date Type Department Care Team (Late st Contact Info) Description 12/23/2021 Transcribe Orders Virtual Department [address] [place] [address] Loreto Bustillo CNP 14 [facility] [address] [place], [place] [phone] [email or web address] Breast screening (Primary Dx) Social History Tobacco Use Types Packs/Day Years [...] Description 12/26/2024 11:00 AM EDT Office Visit [facility] [address] [place] [address] Robert Tristan MD [address] [address] [email or web address] 01/09/2025 10:20 AM EDT Office Visit [facility] [address] [place] [address] Robert Tristan MD [address] [address] [email or web address] 06/06/2025 9:00 AM EDT Office Visit [facility] [place] [facility] 14 [facility] [address] [place] [address] Loreto Bustillo, SECONDARY SPECIAL EDUCATION TEACHER 14 [facility] [address] [place] [address] [email or web address] documented as of this encounter Results * BI MAMMOGRAM SCREENING WITH TOMOSYNTHESIS WITH CAD (BILATERAL) (03/13/2022 8:48 AM EST) Anatomical Region Laterality Modality Breast Left, Breast Right, Breast Bilateral Bila teral Mammography 03/15/2022 7:25 PM EST Impressions 03/15/2022 7:28 PM EST BILATERAL BREASTS: Benign, no specific mammographic evidence of malignancy. Normal interval follow-up is recommended in 12 months. BI-RADS: BI-RADS CATEGORY: 2 - Benign finding. DENSITY: The breast tissue is heterogeneously dense, which could obscure a lesion on mammography. Narrative 03/15/2022 7:28 PM EST STUDY: BI MAMMOGRAM SCREENING WITH TOMOSYNTHESIS WITH CAD (BILATERAL) TECHNIQUE: Bilateral full-field digital screening mammography is obtained and read in conjunction with computer-aided detection. Tomosynthesis as well as 2-D C view imaging were obtained. COMPARISON: Comparison made to multiple prior, most recent March 12, 2021, and most remote January 23, 2015. BREAST COMPOSITION: The breast tissue is heterogeneously dense, which may obscure small masses. RIGHT BREAST: No significant masses, suspicious calcifications or other abnormalities are seen. LEFT BREAST: Tissue marker from previous needle core biopsy. No significant masses, suspicious calcifications or other abnormalities are seen. Procedure Note Alejandra Pineda MD - 03/15/2022 STUDY: BI MAMMOGRAM SCREENING WITH TOMOSYNTHESIS WITH CAD (BILATERAL) TECHNIQUE: Bilateral full-field digital screening mammography is obtainedand read in conjunction with computer-aided detection. Tomosynthesis aswell as 2-D C view imaging were obtained. COMPARISON: Comparison made to multiple prior, most recent February, and most remote January 23, 2015. BREAST COMPOSITION: The breast tissue is heterogeneously dense, which mayobscure small masses. RIGHT BREAST: No significant masses, suspicious calcifications or otherabnormalities are seen. LEFT BREAST: Tissue marker from previous needle core biopsy. Nosignificant masses, suspicious calcifications or other abnormalities areseen. IMPRESSION: BILATERAL BREASTS: Benign, no specific mammographic evidence ofmalignancy. Normal interval follow-up is recommended in 12 months. BI-RADS: BI-RADS CATEGORY: 2 - Benign finding. DENSITY: The breast tissue is heterogeneously dense, which could obscurea lesion on mammography. Loreto Bustillo [facility] IMG MG EXAMS Final Result documented in this encounter Visit Diagnoses Diagnosis Breast screening- Primary Breast screening, unspecified Breast screening Breast screening, unspecified Hyperlipidemia, unspecified hyperlipidemia type- Primary Essential hypertension Unspecified essential hypertension Coronary artery calcification seen on CT scan Mitral annular calcification Mitral valve disorders documented in this encounter Additional Health Concerns Assessment Noted Time PHQ-2 Depression Total Score: 0 04/02/19 8:45 AM EST documented as of this encounter Care Teams Ceo Na Relationship Specialty Start Date End Date Loreto Bustillo CNP [address] [place] [address] PCP - General 01/12/17 Loreto Bustillo CNP [address] [place] [address] Historical LMR Provider 01/10/17 Diann Juarez MD [address] [place] [address] [email or web address] Historical LMR Provider 01/10/17 Jacky Chan MD [address] [place] [address] [email or web address] Historical LMR Provider 01/10/17 Fariha Briseno NP [address] [place] [address] [email or web address] Historical LMR Provider 01/10/17 Tami Greenberg MD [address] [place] [address], [address] [place] [address] [email or web address] Historical LMR Provider 01/10/17 Diann Juarez MD [address] [place] [address] [email or web address] Insurance Assigned Provider 06/28/1903/28/22 Diann Juarez MD [address] [place] [address] [place] [address] [email or web address] Insurance Assigned Provider 06/26/2306/25/24 Loreto Bustillo CNP [address] [place] [address] [place] [address] [email or web address] Insurance Assigned Provider 06/25/24 documented as of this encounter Additional Source Comments The information contained in this document represents components of the legal health record. It is not the complete legal health record.[facility]
--- OUTSIDE RECORDS SUMMARY | 2024-12-26 10:48 | XMS_ITS | Patient Health Record ---
Author Organization [facility] Address [address] [place] [address] Support Name Relationship Address Phone DiannLarry Emergency Contact [address] [place] [address] Jeanne London Guarantor Unknown [phone] Reason For Referral No Information Medications Medication SIG (Take, Route, Frequency, Duration) Notes Start Date End Date Status ZOLMitriptan 5 MG 9 Oral 1 po at onset of migraine MR once in 2 hours; Duration: 11/12/2015 Active BOTOX 200 UNITS VIAL 1 to be inj per md; Duration: 0 *please review for potential update for e-prescription and drug interaction check* 02/07/2010 Active Atenolol 25 MG 0 Oral 1 po qam; Duration: 03/16/2011 Active CeleXA 20 MG 0 Oral; Duration: 11/18/2010 Active Allopurinol 100 MG 0 Oral; Duration: 11/18/2010 Active Plan Of Treatment No Information Insurance Providers Payer Name Payer Address Payer Phone Subscriber Number Group Number Insured Name Patient Relationship to Insured Coverage Start Date Coverage End Date [facility] [address] [place], [place] [id number] Jeanne London Self - patient is the insured
--- OUTSIDE RECORDS SUMMARY | 2024-12-26 10:48 | XMS_ITS | Encounter Summary ---
Author Organization [facility] Address [address] [place] [address] [place] [address] Phone Care Team Providers Care Quebracho Tanner Name Role Phone Loreto Bustillo CNP Unavailable Diann Juarez MD Unavailable Jacky Chan MD Unavailable Fariha Briseno NP Unavailable [phone] Tami Greenberg MD Unavailable Loreto Bustillo CNP Primary Care Provider Diann Juarez MD Unavailable [phone] Loreto Bustillo CNP Unavailable [phone] Encounter Details Date Type Department Care Team (Late st Contact Info) Description 01/25/2024 Procedure Pass [facility], [address] [address] Social History Tobacco Use Types Packs/Day Years [...] with a working camera? Not on file Comments No Sex and Gender Information Value [...] Description 12/26/2024 11:00 AM EDT Office Visit [facility] [address] [place] [address] Robert Tristan MD [address] [place] [address] [email or web address] 01/09/2025 10:20 AM EDT Office Visit [facility] [address] [place] [address] Robert Tristan MD [address] [place] [address] [email or web address] 06/06/2025 9:00 AM EDT Office Visit [facility] [place] [facility] [address] [address] Loreto Bustillo CNP [address] [address] documented as of this encounter Visit Diagnoses Not on filedocumented in this encounter Additional Health Concerns Assessment Noted Time PHQ-9 Depression Total Score: 16 025 8:52 AM EDT PHQ-2 Depression Total Score: 6 06/03/19 25 8:52 AM EDT documented as of this encounter Care Teams Quebracho Tanner Relationship Specialty Start Date End Date Loreto Bustillo CNP [address] [place] [address] [email or web address] PCP - General 01/12/17 Loreto Bustillo, ELIZABETH [address] [place] [address] [email or web address] Historical LMR Provider 01/10/17 Diann Juarez MD [address] [place] [address] [email or web address] Historical LMR Provider 01/10/17 Jacky Chan MD [address] [place] [address] [email or web address] Historical LMR Provider 01/10/17 Fariha Briseno NP [address] [place] [address] [email or web address] Historical LMR Provider 01/10/17 Tami Greenberg MD [address] [place] [address], [address] [place] [address] [email or web address] Historical LMR Provider 01/10/17 Diann Juarez MD [address] [place] [address] [email or web address] Insurance Assigned Provider 06/26/2306/25/24 Loreto Bustillo, ELIZABETH [address] [place] [address] [email or web address] Insurance Assigned Provider 06/25/24 documented as of this encounter Additional Source Comments The information contained in this document represents components of the legal health record. It is not the complete legal health record.[facility]
--- OUTSIDE RECORDS SUMMARY | 2024-12-26 10:48 | XMS_ITS | Encounter Summary ---
Author Organization [facility] Address [address] [place] [address] [place] [address] Phone Care Team Providers Care Completion Supervisor Name Role Phone Loreto Bustillo CNP Unavailable [phone] Diann Juarez MD Unavailable Jacky Chan MD Unavailable Fariha Briseno NP Unavailable [facility] MD Unavailable Jonathan Alonzo MD Unavailable Unavailable Jim Durant MD Unavailable Marcos Sanz MD Unavailable [phone] Loreto Bustillo CNP Primary Care Provider Diann Juarez MD Unavailable [phone] Diann Juarez MD Unavailable Loreto Bustillo CNP Unavailable [phone] Encounter Details Date Type Department Care Team (Late st Contact Info) Description 12/12/2018 Ancillary Orders [facility] [place] [facility] 14 [facility] [address] [place], [place] [phone] Loreto Bustillo CNP 14 [facility] [address] [place], [place] [phone] Breast screening Social History Tobacco Use Types [...] Description 12/26/2024 11:00 AM EDT Office Visit [facility] [address] [place] [address] Robert Tristan MD [address] [place] [address] [email or web address] 01/09/2025 10:20 AM EDT Office Visit [facility] [address] [place] [address] Robert Tristan MD [address] [place] [address] [email or web address] 06/06/2025 9:00 AM EDT Office Visit [facility] [place] [facility] [address] [address] Loreto Bustillo, SPIKE MACHINE OPERATOR [address] [address] [email or web address] documented as of this encounter Results * BI MAMMOGRAM SCREENING WITH TOMOSYNTHESIS WITH CAD (BILATERAL) (03/08/2019 8:47 AM EST) Anatomical Region Laterality Modality Breast Left, Breast Right, Breast Bilateral Bila teral Mammography 03/08/2019 9:10 AM EST Impressions 03/08/2019 9:12 AM EST No mammographic evidence of malignancy. BI-RADS CATEGORY: 2 - Benign finding. DENSITY: The breast tissue is heterogeneously dense, an appearance which lowers the sensitivity of mammography. POS - [id number] Narrative 03/08/2019 9:12 AM EST Standard digital full-field 2-D C view and two-plane tomographic imaging was performed and compared with multiple prior studies, most recently 03/04/2018, with utilization of computer-aided detection. The breast parenchyma is heterogeneously dense, somewhat limiting mammographic sensitivity. The stromal markings are essentially unchanged in overall appearance and distribution. No dominant spiculated mass, suspicious clustered microcalcifications, or focal zone of pathologic skin thickening or retraction are noted to have arisen in the interim. Biopsy clip again seen in the lateral left breast. Procedure Note Deven James MD - 03/08/2019 Standard digital full-field 2-D C view and two-plane tomographic imagingwas performed and compared with multiple prior studies, most hjvcutue92/14/2018, with utilization of computer-aided detection. The breast parenchyma is heterogeneously dense, somewhat limitingmammographic sensitivity. The stromal markings are essentially unchangedin overall appearance and distribution. No dominant spiculated mass,suspicious clustered microcalcifications, or focal zone of pathologic skinthickening or retraction are noted to have arisen in the interim. Biopsyclip again seen in the lateral left breast. IMPRESSION: No mammographic evidence of malignancy. BI-RADS CATEGORY: 2 - Benign finding. DENSITY: The breast tissue is heterogeneously dense, an appearance whichlowers the sensitivity of mammography. POS - [id number] Loreto Bustillo SPIKE MACHINE OPERATOR IMG MG EXAMS Final Result documented in [...] documented as of this encounter Care Teams Completion Supervisor Relationship Specialty Start Date End Date Loreto Bustillo ELIZABETH Andino [address] [place] [address] PCP - General 01/12/17 Loreto Bustillo ELIZABETH Andino [address] [place] [address] [email or web address] Historical LMR Provider 01/10/17 Diann Juarez MD [address] [place] [address] [email or web address] Historical LMR Provider 01/10/17 Jacky Chan MD [address] [place] [address] [email or web address] Historical LMR Provider 01/10/17 Fariha Briseno NP [address] [place] [address] [email or web address] Historical LMR Provider 01/10/17 Tami Greenberg MD [address] [place] [address] [email or web address] Historical LMR Provider 01/10/17 Jonathan Alonzo MD Historical LMR Provider 01/10/17 03/29/21 Jim Durant MD [address] [place] [address] Historical LMR Provider 01/10/17 2 Marcos Sanz MD [address] [place] [address] [email or web address] Historical LMR Provider 01/10/17 03/29/21 Diann Juarez MD [address] [place] [address] [email or web address] Insurance Assigned Provider 06/28/1903/28/22 Diann Juarez MD [address] [place] [address] [email or web address] Insurance Assigned Provider 06/26/2306/25/24 Loreto Bustillo CNP [address] [place] [address] Insurance Assigned Provider 06/25/24 documented as of this encounter Additional Source Comments The information contained in this document represents components of the legal health record. It is not the complete legal health record.[facility]
--- OUTSIDE RECORDS SUMMARY | 2024-12-26 10:48 | XMS_ITS | Encounter Summary ---
Author Organization [facility] Address [address] [place] [address] [place] [address] Phone Care Team Providers Care Shoes Salesperson Name Role Phone Loreto Bustillo CNP Unavailable [phone] Diann Juarez MD Unavailable [phone] Jacky Chan MD Unavailable Fariha Briseno NP Unavailable [phone] Tami Greenberg MD Unavailable Loreto Bustilol CNP Primary Care Provider Loreto Bustillo CNP Unavailable [phone] Encounter Details Date Type Department Care Team (Late st Contact Info) Description 08/24/2024 Procedure Pass [facility], [address] [address] Social History Tobacco Use Types Packs/Day Years [...] Description 12/26/2024 11:00 AM EDT Office Visit [facility] [address] [place] [address] Robert Tristan MD [address] [place] [address] [email or web address] 01/09/2025 10:20 AM EDT Office Visit [facility] [address] [place] [address] Robert Tristan MD [address] [place] [address] [email or web address] 06/06/2025 9:00 AM EDT [facility] [place] [facility] 14 [facility] [address] [place] [address] Loreto Bustillo, ROCK DRILL OPERATOR 14 [facility] [address] [place] [address] documented as of this encounter Visit Diagnoses Not on filedocumented in this encounter Additional Health Concerns Assessment Noted Time PHQ-9 Depression Total Score: 16 025 8:52 AM EDT PHQ-2 Depression Total Score: 6 06/03/19 25 8:52 AM EDT documented as of this encounter Care Teams Shoes Salesperson Relationship Specialty Start Date End Date Loreto Bustillo CNP [address] [place] [address] PCP - General 01/12/17 Loreto Bustillo CNP [address] [place] [address] Historical LMR Provider 01/10/17 Diann Juarez MD [address] [place] [address] [email or web address] Historical LMR Provider 01/10/17 Jacky Chan MD [address] [place] [address] [email or web address] Historical LMR Provider 01/10/17 Fariha Briseno NP [address] [place] [address] [email or web address] Historical LMR Provider 01/10/17 Tami Greenberg MD [address] [place] [address], [address] [place] [address] [email or web address] Historical LMR Provider 01/10/17 Loreto Bustillo CNP [address] [place] [address] [address] [place] [address] [email or web address] Insurance Assigned Provider 06/25/24 documented as of this encounter Additional Source Comments The information contained in this document represents components of the legal health record. It is not the complete legal health record.[facility]
--- OUTSIDE RECORDS SUMMARY | 2024-12-26 10:48 | XMS_ITS | Encounter Summary ---
Author Organization [facility] Address [address] [place] [address] [place] [address] Phone Care Team Providers Care Mental Tester Name Role Phone Loreto Bustillo CNP Unavailable Diann Juarez MD Unavailable Jacky Chan MD Unavailable Fariha Briseno NP Unavailable Tami Greenberg MD Unavailable [phone] Loreto Bustillo CNP Primary Care Provider Diann Juarez MD Unavailable [phone] Diann Juarez MD Unavailable [phone] Loreto Bustillo CNP Unavailable [phone] Encounter Details Date Type Department Care Team (Late st Contact Info) Description 02/09/2022 Procedure Pass [facility] Admitting Dept Virtual Department [address] [place] [address] Social History Tobacco Use Types Packs/Day Years [...] Description 12/26/2024 11:00 AM EDT Office Visit [facility] [address] [place] [address] Robert Tristan MD [address] [address] [email or web address] 01/09/2025 10:20 AM EDT Office Visit [facility] [address] [place] [address] Robert Tristan MD [address] [address] [email or web address] 06/06/2025 9:00 AM EDT Office Visit [facility] 14 [facility] [address] [place] [address] Loreto Bustillo CNP [address] [address] documented as of this encounter Visit Diagnoses Not on filedocumented in this encounter Additional Health Concerns Assessment Noted Time PHQ-2 Depression Total Score: 0 04/02/19 22 8:45 AM EST documented as of this encounter Care Teams Mental Tester Relationship Specialty Start Date End Date Loreto Bustillo CNP [address] [place] [address] [place] [address] PCP - General 01/12/17 Loreto Bustillo CNP [address] [place] [address] [place] [address] Historical LMR Provider 01/10/17 Diann Juarez MD [address] [place] [address] [email or web address] Historical LMR Provider 01/10/17 Jacky Chan MD [address] [place] [address] [email or web address] Historical LMR Provider 01/10/17 Fariha Briseno NP [address] [place] [address] [email or web address] Historical LMR Provider 01/10/17 Tami Greenberg MD [address] [place] [address] [email or web address] Historical LMR Provider 01/10/17 Diann Juarez MD [address] [place] [address] [email or web address] Insurance Assigned Provider 06/28/1903/28/22 Diann Juarez MD [address] [place] [address] Insurance Assigned Provider 06/26/2306/25/24 Loreto Bustillo CNP [address] [place] [address] Insurance Assigned Provider 06/25/24 documented as of this encounter Additional Source Comments The information contained in this document represents components of the legal health record. It is not the complete legal health record.[facility]
--- OUTSIDE RECORDS SUMMARY | 2024-12-26 10:48 | XMS_ITS | Encounter Summary ---
Author Organization [facility] Address [address] [place] [address] [place] [address] Phone Care Team Providers Care Mortgage Originator Name Role Phone Loreot Bustillo CNP Unavailable Diann Juarez MD Unavailable Jacky Chan MD Unavailable Fariha Briseno NP Unavailable Tami Greenberg MD Unavailable Jonathan Alonzo MD Unavailable Unavailable Jim Durant MD Unavailable [phone] Marcos Sanz MD Unavailable [phone] Loreto Bustillo CNP Primary Care Provider Diann Juarez MD Unavailable Diann Juarez MD Unavailable [phone] Loreto Bustillo CNP Unavailable [phone] Encounter Details Date Type Department Care Team (Late st Contact Info) Description 12/10/2020 Transcribe Orders Virtual Department 30 [place], [place] [id number] Loreto Bustillo CNP 14 [facility] [address] [place], [place] [id number] [email or web address] Breast screening (Primary Dx) Social History Tobacco [...] 12/26/2024 11:00 AM EDT Office Visit [facility] 70 [place] [address] Robert Tristan MD [address] [place] [address] [email or web address] 01/09/2025 10:20 AM EDT Office Visit [facility] 70 [place] [address] Robert Tristan MD [address] [place] [address] [email or web address] 06/06/2025 9:00 AM EDT Office Visit [facility] [place] [facility] [address] [address] Loreto Bustillo, PHYSICIAN/ALLERGY/IMMUNOLOGY [address] [address] [email or web address] documented as of this encounter Results * BI MAMMOGRAM SCREENING WITH TOMOSYNTHESIS WITH CAD (BILATERAL) (03/12/2021 8:15 AM EST) Anatomical Region Laterality Modality Breast Left, Breast Right, Breast Bilateral Bila teral Mammography 03/12/2021 8:21 AM EST Impressions 03/12/2021 8:24 AM EST No mammographic evidence of malignancy. Recommend routine annual surveillance. BI-RADS CATEGORY: 2 - Benign finding. DENSITY: The breast tissue is heterogeneously dense, which could obscure a lesion on mammography. Narrative 03/12/2021 8:24 AM EST 65-year-old female with no current breast symptoms. Comparison made to previous on 03/11/2020 and as far back as 01/23/2015. Interpretation made in conjunction with computer-aided detection and tomosynthesis. The breasts are heterogeneously dense, which may obscure small masses. Chronic benign bilateral vascular and scattered calcifications. Stable left breast biopsy marker. There are no suspicious masses, areas of architectural distortion, or suspicious clusters of microcalcifications. Procedure Note Jonathan Luo MD - 03/12/2021 65-year-old female with no current breast symptoms. Comparison made toprevious on 03/11/2020 and as far back as 01/23/2015. Interpretation madein conjunction with computer-aided detection and tomosynthesis. The breasts are heterogeneously dense, which may obscure small masses.Chronic benign bilateral vascular and scattered calcifications. Stableleft breast biopsy marker. There are no suspicious masses, areas of architectural distortion, orsuspicious clusters of microcalcifications. IMPRESSION: No mammographic evidence of malignancy. Recommend routine annualsurveillance. BI-RADS CATEGORY: 2 - Benign finding. DENSITY: The breast tissue is heterogeneously dense, which could obscurea lesion on mammography. Loreto Bustillo CNP IMG MG EXAMS Final Result documented in [...] documented as of this encounter Care Teams Mortgage Originator Relationship Specialty Start Date End Date Loreto Bustillo CNP [address] [place] [address] [place] [address] [email or web address] PCP - General 01/12/17 Keny Loreto Thu, ELIZABETH [address] [place] [address] Historical LMR Provider 01/10/17 Diann Juarez MD [address] [place] [address] [email or web address] Historical LMR Provider 01/10/17 Jacky Chan MD [address] [place] [address] [email or web address] Historical LMR Provider 01/10/17 Fariha Briseno NP [address] [place] [address] [email or web address] Historical LMR Provider 01/10/17 Tami Greenberg MD [address] [place] [address] [email or web address] Historical LMR Provider 01/10/17 Jonathan Alonzo MD Historical LMR Provider 01/10/17 03/29/21 Jim Durant MD [address] [place] [address] Historical LMR Provider 01/10/17 2 Marcos Sanz MD [address] [place] [address] [email or web address] Historical LMR Provider 01/10/17 03/29/21 Diann Juarez MD [address] [place] [address] [email or web address] Insurance Assigned Provider 06/28/1903/28/22 Diann Juarez MD [address] [place] [address] [email or web address] Insurance Assigned Provider 06/26/2306/25/24 Loreto Bustillo, ELIZABETH [address] [place] [address] [email or web address] Insurance Assigned Provider 06/25/24 documented as of this encounter Additional Source Comments The information contained in this document represents components of the legal health record. It is not the complete legal health record.[facility]
--- OUTSIDE RECORDS SUMMARY | 2024-12-26 10:48 | XMS_ITS | Encounter Summary ---
Author Organization [facility] Address [address] [place] [address] [place] [address] Phone Care Team Providers Care Surveillance Officer Name Role Phone Loreto Bustillo CNP Unavailable Diann Juarez MD Unavailable [phone] Jacky Chan MD Unavailable Fariha Briseno NP Unavailable [phone] Tami Greenberg MD Unavailable Loreto Bustillo CNP Primary Care Provider Diann Juarez MD Unavailable [phone] Loreto Bustillo CNP Unavailable [phone] Encounter Details Date Type Department Care Team (Late st Contact Info) Description 07/07/2023 Procedure Pass [facility], [address] [address] Social History Tobacco Use Types Packs/Day Years [...] Upcoming Encounters Date Type Department Care Team ([facility] st Contact Info) Description 12/26/2024 11:00 AM EDT Office Visit [facility] Cardiovascular Clinic 70 [place] [address] Robert Tristan MD [address] [place] [address] [email or web address] 01/09/2025 10:20 AM EDT Office Visit [facility] [address] [place] [address] Robert Tristan MD [address] [place] [address] [email or web address] 06/06/2025 9:00 AM EDT Office Visit [facility] [place] [facility] [address] [address] Loreto Bustillo CNP [address] [place] [address] [email or web address] documented as of this encounter Visit Diagnoses Not on filedocumented in this encounter Additional Health Concerns Assessment Noted Time PHQ-2 Depression Total Score: 0 06/01/19 24 8:48 AM EDT documented as of this encounter Care Teams Surveillance Officer Relationship Specialty Start Date End Date Loreto Bustillo CNP [address] [address] PCP - General 01/12/17 Loreto Bustillo, ELIZABETH [address] [place] [address] Historical LMR Provider 01/10/17 Diann Juarez MD [address] [place] [address] [email or web address] Historical LMR Provider 01/10/17 Jacky Chan MD [address] [place] [address] [email or web address] Historical LMR Provider 01/10/17 Fariha Briseno NP [address] [place] [address] [email or web address] Historical LMR Provider 01/10/17 Tami Greenberg MD [address] [place] [address] [email or web address] Historical LMR Provider 01/10/17 Diann Juarez MD [address] [place] [address] [email or web address] Insurance Assigned Provider 06/26/2306/25/24 Loreto Bustillo CNP [address] [place] [address] Insurance Assigned Provider 06/25/24 documented as of this encounter Additional Source Comments The information contained in this document represents components of the legal health record. It is not the complete legal health record.[facility]
--- OUTSIDE RECORDS SUMMARY | 2024-12-26 10:48 | XMS_ITS | Encounter Summary ---
Author Organization [facility] Address [address] [place] [address] [place] [address] Phone Care Team Providers Care Wire Weaver Cloth Name Role Phone Loreto Bustillo CNP Unavailable [phone] Diann Juarez MD Unavailable [phone] Jacky Chan MD Unavailable [phone] Fariha Briseno NP Unavailable Tami Greenberg MD Unavailable Loreto Bustillo CNP Primary Care Provider Diann Juarez MD Unavailable [phone] Diann Juarez MD Unavailable [phone] Loreto Bustillo CNP Unavailable [phone] Encounter Details Date Type Department Care Team (Late st Contact Info) Description 06/04/2021 Ancillary Orders [facility], X-Ray - [address] [address] Yvan Lutz MD [address] [place] [address] [phone] Other cervical disc degeneration, unspecified cervical region [...] 12/26/2024 11:00 AM EDT Office Visit [facility] Cardiovascular Clinic [address] [place] [address] Robert Tristan MD [address] [address] [email or web address] 01/09/2025 10:20 AM EDT Office Visit [facility] [address] [place] [address] Robert Tristan MD [address] [address] [email or web address] 06/06/2025 9:00 AM EDT Office Visit [facility] [place] [facility] 14 [facility] [address] [place] [address] Loreto Bustillo, MANAGER BRAND 14 [facility] [address] [place] [address] [email or web address] documented as of this encounter Results * XR CERVICAL SPINE 4-5 VIEWS (06/04/2021 2:46 PM EDT) Anatomical Region Laterality Modality C-spine Computed Radiogr aphy 06/04/2021 5:14 PM EDT Impressions 06/04/2021 5:16 PM EDT Prior ACDF at C5-C6. No evidence of hardware complication. Degenerative changes. No acute osseous abnormality. Narrative 06/04/2021 5:16 PM EDT XR CERVICAL SPINE 4-5 VIEWS COMPARISON: Cervical Spine FINDINGS: Prior ACDF at C5-C6. No evidence of hardware complication. No acute fracture. No anterolisthesis. Endplate spurring and intervertebral space narrowing at C6-C7. No high-grade neural foraminal narrowing. The open-mouth view reveals normal alignment of the C1 lateral masses on C2, however, the tip of the dens is not well assessed due to superimposition. Procedure Note Jim Guzman MD - 06/04/2021 XR CERVICAL SPINE 4-5 VIEWS COMPARISON: Cervical Spine FINDINGS: Prior ACDF at C5-C6. No evidence of hardware complication. No acutefracture. No anterolisthesis. Endplate spurring and intervertebral spacenarrowing at C6-C7. No high-grade neural foraminal narrowing. Theopen-mouth view reveals normal alignment of the C1 lateral masses on C2,however, the tip of the dens is not well assessed due tosuperimposition. IMPRESSION: Prior ACDF at C5-C6. No evidence of hardware complication. Degenerativechanges. No acute osseous abnormality. Yvan Lutz MD IMG XR SPINE Final Re sult documented in this encounter Visit Diagnoses Diagnosis Other cervical disc degeneration, unspecified cervical region Other cervical disc degeneration, unspecified cervical region Hyperlipidemia, unspecified hyperlipidemia type- Primary Essential hypertension [...] documented as of this encounter Care Teams Wire Weaver Cloth Relationship Specialty Start Date End Date Loreto Bustillo CNP [address] [place] [address] PCP - General 01/12/17 Loreto Bustillo CNP [address] [place] [address] [email or web address] Historical LMR Provider 01/10/17 Diann Juarez MD [address] [place] [address] [email or web address] Historical LMR Provider 01/10/17 Jacky Chan MD [address] [place] [address] [email or web address] Historical LMR Provider 01/10/17 Fariha Briseno NP [address] [place] [address] [email or web address] Historical LMR Provider 01/10/17 Tami Greenberg MD [address] [place] [address] [email or web address] Historical LMR Provider 01/10/17 Diann Juarez MD [address] [place] [address] [email or web address] Insurance Assigned Provider 06/28/1903/28/22 Diann Juarez MD [address] [place] [address] [email or web address] Insurance Assigned Provider 06/26/2306/25/24 Loreto Bustillo, ELIZABETH [address] [place] [address], [place] [address] [email or web address] Insurance Assigned Provider 06/25/24 documented as of this encounter Additional Source Comments The information contained in this document represents components of the legal health record. It is not the complete legal health record.[facility]
--- OUTSIDE RECORDS SUMMARY | 2024-12-26 10:48 | XMS_ITS | Encounter Summary ---
Author Organization [facility] Address [address] [place] [address] [place] [address] Phone Care Team Providers Care Nurses' Aide Name Role Phone Loreto Bustillo CNP Unavailable Diann Juarez MD Unavailable Jacky Chan MD Unavailable Fariha Briseno NP Unavailable [phone] Tami Greenberg MD Unavailable Loreto Bustillo CNP Primary Care Provider Diann Juarez MD Unavailable [phone] Loreto Bustillo CNP Unavailable [phone] Encounter Details Date Type Department Care Team (Late st Contact Info) Description 02/23/2024 Procedure Pass [place] Admitting Dept - Virtual Department [address] [place] [address] Social History Tobacco Use Types Packs/Day Years [...] as food, clothing, or medical care? No 02/23/2024 In the past 12 months have y ou been in a relationship with a person who hurts, threatens, or tries to control you? No 02/23/2024 Are you denied basic needs s uch as food, clothing, or medical care? No 02/23/2024 In the past 12 months have y ou been in a relationship with a person who hurts, threatens, or tries to control you? No 02/23/2024 Comments No Sex and Gender Information Value [...] Description 12/26/2024 11:00 AM EDT Office Visit [facility] Cardiovascular Clinic [address] [place] [address] Robert Tristan MD [address] [place] [address] [email or web address] 01/09/2025 10:20 AM EDT Office Visit [facility] [address] [place] [address] Robert Tristan MD [address] [place] [address] [email or web address] 06/06/2025 9:00 AM EDT Office Visit [facility] [place] [facility] 14 [facility] [address] [place] [address] Loreto Bustillo, FOOD AND BEVERAGE SERVER 14 [facility] [address] [place] [address] documented as of this encounter Visit Diagnoses Not on filedocumented in this encounter Additional Health Concerns Assessment Noted Time PHQ-2 Depression Total Score: 0 06/01/19 24 8:48 AM EDT documented as of this encounter Care Teams Nurses' Aide Relationship Specialty Start Date End Date Jose AlfredohersonLoreto CNP [address] [place] [address] PCP - General 01/12/17 Loreto Bustillo CNP [address] [place] [address] Historical LMR Provider 01/10/17 Diann Juarez MD [address] [place] [address] [email or web address] Historical LMR Provider 01/10/17 Jacky Chan MD [address] [place] [address] [email or web address] Historical LMR Provider 01/10/17 Fariha Briseno NP [address] [place] [address] [email or web address] Historical LMR Provider 01/10/17 Tami Greenberg MD [address] [place] [address], [address] [place] [address] [email or web address] Historical LMR Provider 01/10/17 Diann Juarez MD [address] [place] [address] [place] [address] [email or web address] Insurance Assigned Provider 06/26/2306/25/24 Loreto Bustillo CNP [address] [place] [address] [place] [address] [email or web address] Insurance Assigned Provider 06/25/24 documented as of this encounter Additional Source Comments The information contained in this document represents components of the legal health record. It is not the complete legal health record.[facility]
--- OUTSIDE RECORDS SUMMARY | 2024-12-26 10:48 | XMS_ITS | Encounter Summary ---
Author Organization [facility] Address [address] [place] [address] [place] [address] Phone Care Team Providers Care Military Science Instructor Name Role Phone Loreto Bustillo CNP Unavailable [phone] Diann Juarez MD Unavailable Jacky Chan MD Unavailable [phone] Fariha Briseno NP Unavailable Tami Greenberg MD Unavailable Jonathan Alonzo MD Unavailable Unavailable Jim Durant MD Unavailable [phone] Marcos Sanz MD Unavailable [phone] Loreto Bustillo CNP Primary Care Provider Diann Juarez MD Unavailable [phone] Diann Juarez MD Unavailable [phone] Loreto Bustillo CNP Unavailable [phone] Encounter Details Date Type Department Care Team (Late st Contact Info) Description 01/07/2021 Procedure Pass [facility], Ct Scan - [address] [address] Social History Tobacco Use Types Packs/Day Years [...] Description 12/26/2024 11:00 AM EDT Office Visit [facility] Cardiovascular Clinic [address] [place] [address] Robert Tristan MD [address] [address] [email or web address] 01/09/2025 10:20 AM EDT Office Visit [facility] Clinic [address] [place] [address] Robert Tristan MD [address] [address] [email or web address] 06/06/2025 9:00 AM EDT Office Visit [facility] [place] [facility] [address] [address] Loreto Bustillo CNP [address] [address] documented as of this encounter Visit Diagnoses Not on filedocumented in this encounter Additional Health Concerns Infection Onset Date Last Indicated Resolved Time CoV-Risk 06/02/2021 06/02/2021 06/13/2021 1:23 AM EDT documented as of this encounter Care Teams Military Science Instructor Relationship Specialty Start Date End Date Loreto Bustillo CNP [address] [place] [address] PCP - General 01/12/17 Loreto Bustillo CNP 14 [facility] [address] [place] [address] [email or web address] Historical LMR Provider 01/10/17 Diann Juarez MD [address] [place] [address] [place] [address] [email or web address] Historical LMR Provider 01/10/17 Jacky Chan MD [address] [facility] [address] [place] [address] [email or web address] Historical LMR Provider 01/10/17 Fariha Briseno NP [address] [place] [address] [email or web address] Historical LMR Provider 01/10/17 Tami Greenberg MD [address] [place] [address] [email or web address] Historical LMR Provider 01/10/17 Jonathan Alonzo MD Historical LMR Provider 01/10/17 03/29/21 Jim Durant MD [address] [place] [address] Historical LMR Provider 01/10/17 2 Marcos Sanz MD [address] [place] [address] [email or web address] Historical LMR Provider 01/10/17 03/29/21 Diann Juarez MD [address] [place] [address] [place] [address] [email or web address] Insurance Assigned Provider 06/28/1903/28/22 Diann Juarez MD [address] [place] [address] [email or web address] Insurance Assigned Provider 06/26/2306/25/24 Loreto Bustillo CNP [address] [place] [address] [place] [address] [email or web address] Insurance Assigned Provider 06/25/24 documented as of this encounter Additional Source Comments The information contained in this document represents components of the legal health record. It is not the complete legal health record.[facility]
--- OUTSIDE RECORDS SUMMARY | 2024-12-26 10:48 | XMS_ITS | Encounter Summary ---
Author Organization [facility] Address [address] [place] [address] [place] [address] Phone Care Team Providers Care Drafter (Cad) Electrical Name Role Phone Loreto Bustillo CNP Unavailable [phone] Diann Juarez MD Unavailable Jacky Chan MD Unavailable [phone] Fariha Briseno NP Unavailable [phone] Tami Greenberg MD Unavailable Loreto Bustillo CNP Primary Care Provider Diann Juarez MD Unavailable [phone] Loreto Bustillo CNP Unavailable [phone] Encounter Details Date Type Department Care Team (Latest Contact Info) Description 06/30/2023 Transcribe Orders Virtual Department [address] [place], [place] [id number] Yvan Lutz MD [address] [place] [address] Radiculopathy, cervical region (Primary Dx) Social History Tobacco Use Types [...] Upcoming Encounters Date Type Department Care Team ([facility] st Contact Info) Description 12/26/2024 11:00 AM EDT Office Visit [facility] [address] [place] [address] Robert Tristan MD [address] [place] [address] [email or web address] 01/09/2025 10:20 AM EDT Office Visit [facility] [address] [place] [address] Robert Tristan MD [address] [place] [address] [email or web address] 06/06/2025 9:00 AM EDT Office Visit [facility] [place] [facility] 14 [facility] [address] [place] [address] Loreto Bustillo, CYBERATHLETE 14 [facility] [address] [place] [address] documented as of this encounter Visit Diagnoses Diagnosis Radiculopathy, cervical region- Primary Brachial neuritis or radiculitis nos Hyperlipidemia, unspecified hyperlipidemia type- Primary Essential hypertension Unspecified essential hypertension Coronary artery calcification seen on CT scan Mitral annular calcification Mitral valve disorders documented in this encounter Additional Health Concerns Assessment Noted Time PHQ-2 Depression Total Score: 0 06/01/19 24 8:48 AM EDT documented as of this encounter Care Teams Drafter (Cad) Electrical Relationship Specialty Start Date End Date Keny Loreto ELIZABETH Andino [address] [place] [address] PCP - General 01/12/17 Loreto Bustillo CNP [address] [place] [address] Historical LMR Provider 01/10/17 Diann Juarez MD [address] [place] [address] [email or web address] Historical LMR Provider 01/10/17 Jacky Chan MD [address] [place] [address] [email or web address] Historical LMR Provider 01/10/17 Fariha Briseno NP [address] [place] [address] [email or web address] Historical LMR Provider 01/10/17 Tami Greenberg MD [address] [place] [address], 2nd [place] [address] [email or web address] Historical LMR Provider 01/10/17 Diann Juarez MD [address] [place] [address] Insurance Assigned Provider 06/26/2306/25/24 Loreto Bustillo CNP [address] [place] [address] [address] [place] [address] [email or web address] Insurance Assigned Provider 06/25/24 documented as of this encounter Additional Source Comments The information contained in this document represents components of the legal health record. It is not the complete legal health record.[facility]
--- OUTSIDE RECORDS SUMMARY | 2024-12-26 10:48 | XMS_ITS | Encounter Summary ---
Author Organization [facility] Address [address] [place] [address] [place] [address] Phone Care Team Providers Care Outpatient Surgery Rn Name Role Phone Loreto Bustillo CNP Unavailable Diann Juarez MD Unavailable [phone] Jacky Chan MD Unavailable Fariha Briseno NP Unavailable [phone] Tami Greenberg MD Unavailable Loreto Bustillo CNP Primary Care Provider Diann Juarez MD Unavailable [phone] Loreto Bustillo CNP Unavailable [phone] Encounter Details Date Type Department Care Team (Late st Contact Info) Description 02/08/2023 Procedure Pass [facility], [address] [address] Social History Tobacco Use Types Packs/Day Years [...] Upcoming Encounters Date Type Department Care Team ([facility] st Contact Info) Description 12/26/2024 11:00 AM EDT Office Visit [facility] 70 [place] [address] Robert Tristan MD [address] [place] [address] [email or web address] 01/09/2025 10:20 AM EDT Office Visit [facility] [address] [place] [address] Robert Tristan MD [address] [place] [address] [email or web address] 06/06/2025 9:00 AM EDT Office Visit [facility] [place] [facility] [address] [address] Loreto Bustillo CNP [address] [place] [address] [email or web address] documented as of this encounter Visit Diagnoses Not on filedocumented in this encounter Additional Health Concerns Assessment Noted Time PHQ-2 Depression Total Score: 0 05/28/19 23 2:57 PM EST documented as of this encounter Care Teams Outpatient Surgery Rn Relationship Specialty Start Date End Date Loreto Bustillo CNP [address] [place] [address] PCP - General 01/12/17 Loreto Bustillo, ELIZABETH [address] [place] [address] Historical LMR Provider 01/10/17 Diann Juarez MD [address] [place] [address] [email or web address] Historical LMR Provider 01/10/17 Jacky Chan MD [address] [place] [address] [email or web address] Historical LMR Provider 01/10/17 Fariha Briseno NP [address] [place] [address] [email or web address] Historical LMR Provider 01/10/17 Tami Greenberg MD [address] [place] [address] [email or web address] Historical LMR Provider 01/10/17 Diann Juarez MD [address] [place] [address] [email or web address] Insurance Assigned Provider 06/26/2306/25/24 Loreto Bustillo CNP [address] [place] [address] [email or web address] Insurance Assigned Provider 06/25/24 documented as of this encounter Additional Source Comments The information contained in this document represents components of the legal health record. It is not the complete legal health record.[facility]
--- OUTSIDE RECORDS SUMMARY | 2024-12-26 10:48 | XMS_ITS | Encounter Summary ---
Author Organization [facility] Address [address] [place] [address] [place] [address] Phone Care Team Providers Care Director Global Market Research Name Role Phone Loreto Bustillo CNP Unavailable Diann Juarez MD Unavailable [phone] Jacky Chan MD Unavailable Fariha Briseno NP Unavailable [phone] Tami Greenberg MD Unavailable Loreto Bustillo CNP Primary Care Provider Diann Juarez MD Unavailable [phone] Loreto Bustillo CNP Unavailable [phone] Encounter Details Date Type Department Care Team (Late st Contact Info) Description 02/14/2024 Procedure Pass [facility], Ct Scan - [address] [address] Social History Tobacco Use Types Packs/Day Years [...] Upcoming Encounters Date Type Department Care Team ([facility] st Contact Info) Description 12/26/2024 11:00 AM EDT Office Visit [facility] 70 [place] [address] Robert Tristan MD [address] [address] [email or web address] 01/09/2025 10:20 AM EDT Office Visit [facility] 70 [place] [address] Robert Tristan MD [address] [address] [email or web address] 06/06/2025 9:00 AM EDT Office Visit [facility] [place] [facility] [address] [address] Loreto Bustillo CNP [address] [place] [address] documented as of this encounter Visit Diagnoses Not on filedocumented in this encounter Additional Health Concerns Assessment Noted Time PHQ-2 Depression Total Score: 0 06/01/19 24 8:48 AM EDT documented as of this encounter Care Teams Director Global Market Research Relationship Specialty Start Date End Date Loreto Bustillo CNP [address] [place] [address] PCP - General 01/12/17 Loreto Bustillo, ELIZABETH [address] [place] [address] Historical LMR Provider 01/10/17 Diann Juraez MD [address] [place] [address] [email or web address] Historical LMR Provider 01/10/17 Jacky Chan MD [address] [place] [address] [email or web address] Historical LMR Provider 01/10/17 Fariha Briseno NP [address] [place] [address] [email or web address] Historical LMR Provider 01/10/17 Tami Greenberg MD [address] [place] [address] [email or web address] Historical LMR Provider 01/10/17 Diann Juarez MD [address] [place] [address] [email or web address] Insurance Assigned Provider 06/26/2306/25/24 Loreto Bustillo, ELIZABETH [address] [place] [address] Insurance Assigned Provider 06/25/24 documented as of this encounter Additional Source Comments The information contained in this document represents components of the legal health record. It is not the complete legal health record.[facility]
--- OUTSIDE RECORDS SUMMARY | 2024-12-26 10:48 | XMS_ITS | Encounter Summary ---
Author Organization [facility] Address [address] [place] [address] [place] [address] Phone Care Team Providers Care Sales Representative Groceries Name Role Phone Loreto Bustillo CNP Unavailable [phone] Diann Juarez MD Unavailable [phone] Jacky Chan MD Unavailable [phone] Fariha Briseno NP Unavailable Tami Greenberg MD Unavailable Jonathan Alonzo MD Unavailable Unavailable Jim Durant MD Unavailable [phone] Marcos Sanz MD Unavailable [phone] Loreto Bustillo CNP Primary Care Provider Diann Juarez MD Unavailable [phone] Diann Juarez MD Unavailable [phone] Loreto Bustillo CNP Unavailable [phone] Encounter Details Date Type Department Care Team (Late st Contact Info) Description 12/10/2020 Procedure Pass [facility], [address] [address] Social History Tobacco Use Types [...] Upcoming Encounters Date Type Department Care Team ([facility] st Contact Info) Description 12/26/2024 11:00 AM EDT Office Visit [facility] [address] [place] [address] Robert Tristan MD [address] [address] [email or web address] 01/09/2025 10:20 AM EDT Office Visit [facility] [address] [place] [address] Robert Tristan MD [address] [address] [email or web address] 06/06/2025 9:00 AM EDT Office Visit [facility] [place] [facility] [address] [address] Loreto Bustillo CNP [address] [address] documented as of this encounter Visit Diagnoses Not on filedocumented in this encounter Additional Health Concerns Infection Onset Date Last Indicated Resolved Time CoV-Risk 06/02/2021 06/02/2021 06/13/2021 1:23 AM EDT documented as of this encounter Care Teams Sales Representative Groceries Relationship Specialty Start Date End Date Loreto Bustillo CNP [address] [address] PCP - General 01/12/17 Loreto Bustillo CNP 14 [facility] [address] [place] [address] [email or web address] Historical LMR Provider 01/10/17 Diann Juarez MD 14 [facility] [address] [place] [address] [email or web address] Historical LMR Provider 01/10/17 Jacky Chan MD 14 [facility] [address] [place] [address] [email or web address] Historical LMR Provider 01/10/17 Fariha Briseno NP [address] [place] [address] [email or web address] Historical LMR Provider 01/10/17 Tami Greenberg MD [address] [place] [address] [email or web address] Historical LMR Provider 01/10/17 Jonathan Alonzo MD Historical LMR Provider 01/10/17 03/29/21 Jim Durant MD [address] [place] [address] Historical LMR Provider 01/10/17 2 Marcos Sanz MD [address] [place] [address] [email or web address] Historical LMR Provider 01/10/17 03/29/21 iDann Juarez MD [address] [place] [address] [place] [address] [email or web address] Insurance Assigned Provider 06/28/1903/28/22 Diann Juarez MD [address] [place] [address] [email or web address] Insurance Assigned Provider 06/26/2306/25/24 Loreto Bustillo CNP [address] [place] [address] [email or web address] Insurance Assigned Provider 06/25/24 documented as of this encounter Additional Source Comments The information contained in this document represents components of the legal health record. It is not the complete legal health record.[facility]
--- OUTSIDE RECORDS SUMMARY | 2024-12-26 10:49 | XMS_ITS | Encounter Summary ---
Author Organization [facility] Address [address] [place] [address] [place] [address] Phone Care Team Providers Care Salesperson Household Appliances Name Role Phone Loreto Bustillo CNP Unavailable [phone] Diann Juarez MD Unavailable [phone] Jacky Chan MD Unavailable Fariha Briseno NP Unavailable Tami Greenberg MD Unavailable Jonathan Alonzo MD Unavailable Unavailable Jim Durant MD Unavailable [phone] Marcos Sanz MD Unavailable [phone] Loreto Bustillo CNP Primary Care Provider Diann Juarez MD Unavailable Diann Juarez MD Unavailable Loreto Bustillo CNP Unavailable [phone] Encounter Details Date Type Department Care Team (Late st Contact Info) Description 12/14/2019 Ancillary Orders [facility] [place] [facility] 14 [facility] [address] [place] [address] Loreto Bustillo CNP 14 [facility] [address] [place], [place] [address] Breast screening Social History Tobacco Use Types [...] Description 12/26/2024 11:00 AM EDT Office Visit [facility] 70 [place] [address] Robert Tristan MD [address] [place] [address] [email or web address] 01/09/2025 10:20 AM EDT Office Visit [facility] 70 [place] [address] Robert Tristan MD [address] [place] [address] [email or web address] 06/06/2025 9:00 AM EDT Office Visit [facility] [place] [facility] [address] [address] Loreto Bustillo, ENTERTAINMENT PRODUCTION PROFESSIONAL [address] [address] [email or web address] documented as of this encounter Results * BI MAMMOGRAM SCREENING WITH TOMOSYNTHESIS WITH CAD (BILATERAL) (03/11/2020 8:36 AM EST) Anatomical Region Laterality Modality Breast Left, Breast Right, Breast Bilateral Bila teral Mammography 03/11/2020 8:38 AM EST Impressions 03/11/2020 8:40 AM EST No mammographic evidence of malignancy. Recommend routine annual surveillance. BI-RADS CATEGORY: 2 - Benign finding. DENSITY: The breast tissue is heterogeneously dense, which could obscure a lesion on mammography. Narrative 03/11/2020 8:40 AM EST 64-year-old female with no current breast symptoms. Comparison made to previous on 03/08/2019 and as far back as 01/23/2014. Interpretation made in conjunction with computer-aided detection and tomosynthesis. The breasts are heterogeneously dense, which may obscure small masses. Stable left breast biopsy marker and benign bilateral vascular calcifications. There are no suspicious masses, areas of architectural distortion, or suspicious clusters of microcalcifications. Procedure Note Jonathan Luo MD - 03/11/2020 64-year-old female with no current breast symptoms. Comparison made toprevious on 03/08/2019 and as far back as 01/23/2014. Interpretation madein conjunction with computer-aided detection and tomosynthesis. The breasts are heterogeneously dense, which may obscure small masses.Stable left breast biopsy marker and benign bilateral vascularcalcifications. There are no suspicious masses, areas of [...] documented as of this encounter Care Teams Salesperson Household Appliances Relationship Specialty Start Date End Date Loreto Bustillo CNP [address] [place] [address] [place] [address] [email or web address] PCP - General 01/12/17 Loreto Bustillo, ENTERTAINMENT PRODUCTION PROFESSIONAL [address] [address] Historical LMR Provider 01/10/17 Diann Juarez MD [address] [address] [email or web address] Historical LMR Provider 01/10/17 Jacky Chan MD [address] [place] [address] [email or web address] Historical LMR Provider 01/10/17 Fariha Briseno NP [address] [place] [address] [email or web address] Historical LMR Provider 01/10/17 Tami Greenberg MD [address] [place] [address], [address] [place] [address] [email or web address] Historical LMR Provider 01/10/17 Jonathan Alonzo MD Historical LMR Provider 01/10/17 03/29/21 Jim Durant MD [address] [place] [address] Historical LMR Provider 01/10/17 2 Marcos Sanz MD [address] [place] [address] [email or web address] Historical LMR Provider 01/10/17 03/29/21 Diann Juarez MD [address] [place] [address] [email or web address] Insurance Assigned Provider 06/28/1903/28/22 Diann Juarez MD [address] [place] [address] Insurance Assigned Provider 06/26/2306/25/24 Loreto Bustillo, ELIZABETH [address] [place] [address] Insurance Assigned Provider 06/25/24 documented as of this encounter Additional Source Comments The information contained in this document represents components of the legal health record. It is not the complete legal health record.[facility]
--- OUTSIDE RECORDS SUMMARY | 2024-12-26 10:49 | XMS_ITS | Encounter Summary ---
Author Organization [facility] [place] Address [address] [place] [address] [place] [address] Phone Care Team Providers Care Medical Researcher Name Role Phone Loreto Bustillo CNP Unavailable [phone] Diann Juarez MD Unavailable [phone] Jacky Chan MD Unavailable [phone] Fariha Briseno NP Unavailable Tami Greenberg MD Unavailable Jonathan Alonzo MD Unavailable Unavailable Jim Durant MD Unavailable [phone] Marcos Sanz MD Unavailable [phone] Loreto Bustillo CNP Primary Care Provider Diann Juarez MD Unavailable [phone] Diann Juarez MD Unavailable [phone] Loreto Bustillo CNP Unavailable [phone] Encounter Details Date Type Department Care Team (Late st Contact Info) Description 03/18/2019 Procedure Pass [facility] Admitting Dept Virtual Department [address] [place] [address] Social History Tobacco Use Types Packs/Day [...] [facility] [address] [place] [address] Robert Tristan MD [address] [address] [email or web address] 01/09/2025 10:20 AM EDT Office Visit [facility] [address] [place] [address] Robert Tristan MD [address] [address] [email or web address] 06/06/2025 9:00 AM EDT Office Visit [facility] [place] [facility] [address] [address] Loreto Bustillo CNP [address] [address] documented as of this encounter Visit Diagnoses Not on filedocumented in this encounter Additional Health Concerns Infection Onset Date Last Indicated Resolved Time CoV-Risk 06/02/2021 06/02/2021 06/13/2021 1:23 AM EDT documented as of this encounter Care Teams Medical Researcher Relationship Specialty Start Date End Date Loreto Bustillo CNP [address] [place] [address] PCP - General 01/12/17 Loreto Bustillo CNP [address] [place] [address] [place] [address] [email or web address] Historical LMR Provider 01/10/17 Diann Juarez MD [address] [place] [address] [place] [address] [email or web address] Historical LMR Provider 01/10/17 Jacky Chan MD [address] [place] [address] [place] [address] [email or web address] Historical LMR Provider 01/10/17 Fariha Briseno NP [address] [place] [address] [email or web address] Historical LMR Provider 01/10/17 Tami Greenberg MD [address] [place] [address] [email or web address] Historical LMR Provider 01/10/17 Jonathan Alonzo MD Historical LMR Provider 01/10/17 03/29/21 Jim Durant MD [address] [place] [address] Historical LMR Provider 01/10/17 2 Marcos Sanz MD [address] [place] [address] [email or web address] Historical LMR Provider 01/10/17 03/29/21 Diann Juarez MD [address] [place] [address] [place] [address] [email or web address] Insurance Assigned Provider 06/28/1903/28/22 Diann Juarez MD [address] [place] [address] [email or web address] Insurance Assigned Provider 06/26/2306/25/24 Loreto Bustillo CNP [address] [place] [address] [email or web address] Insurance Assigned Provider 06/25/24 documented as of this encounter Additional Source Comments The information contained in this document represents components of the legal health record. It is not the complete legal health record.[facility] [place]
--- OUTSIDE RECORDS SUMMARY | 2024-12-26 10:49 | XMS_ITS | Encounter Summary ---
Author Organization [facility] Address [address] [place] [address] [place] [address] Phone Care Team Providers Care Machine Operator Picker Name Role Phone Loreto Bustillo CNP Unavailable [phone] Diann Juarez MD Unavailable Jacky Chan MD Unavailable [phone] Fariha Briseno NP Unavailable Tami Greenberg MD Unavailable Jonathan Alonzo MD Unavailable Unavailable Jim Durant MD Unavailable [phone] Marcos Sanz MD Unavailable [phone] Loreto Bustillo CNP Primary Care Provider Diann Juarez MD Unavailable [phone] Diann Juarez MD Unavailable [phone] Loreto Bustillo CNP Unavailable [phone] Encounter Details Date Type Department Care Team (Late st Contact Info) Description 12/14/2019 Procedure Pass [facility], [address] [address] Social History Tobacco Use Types [...] Description 12/26/2024 11:00 AM EDT Office Visit [facility] [address] [place] [address] Robert Tristan MD [address] [address] [email or web address] 01/09/2025 10:20 AM EDT Office Visit [facility] [address] [place] [address] Robert Tristan MD [address] [address] [email or web address] 06/06/2025 9:00 AM EDT Office Visit [facility] [place] [facility] [address] [address] Loreto Bustillo CNP [address] [address] documented as of this encounter Visit Diagnoses Not on filedocumented in this encounter Additional Health Concerns Infection Onset Date Last Indicated Resolved Time CoV-Risk 06/02/2021 06/02/2021 06/13/2021 1:23 AM EDT documented as of this encounter Care Teams Machine Operator Picker Relationship Specialty Start Date End Date Loreto Bustillo CNP [address] [address] PCP - General 01/12/17 Loreto Bustillo CNP 14 [facility] [address] [place] [address] [email or web address] Historical LMR Provider 01/10/17 Diann Juarez MD [address] [place] [address] [place] [address] [email or web address] Historical LMR Provider 01/10/17 Jacky Chan MD [address] [place] [address] [place] [address] [email or web address] Historical LMR Provider 01/10/17 Fariha Briseno NP [address] [place] [address] [email or web address] Historical LMR Provider 01/10/17 Tami Greenberg MD [address] [place] [address] [email or web address] Historical LMR Provider 01/10/17 Jonathan Alonzo MD Historical LMR Provider 01/10/17 03/29/21 Jim Durant MD [address] [place] [address] Historical LMR Provider 01/10/17 2 Marcos Sanz MD [address] [place] [address] [email or web address] Historical LMR Provider 01/10/17 03/29/21 Diann Juarez MD [address] [place] [address] [place] [address] [email or web address] Insurance Assigned Provider 06/28/1903/28/22 Diann Juarez MD [address] [place] [address] [email or web address] Insurance Assigned Provider 06/26/2306/25/24 Loreto Bustillo CNP [address] [place] [address] [email or web address] Insurance Assigned Provider 06/25/24 documented as of this encounter Additional Source Comments The information contained in this document represents components of the legal health record. It is not the complete legal health record.[facility]
--- OUTSIDE RECORDS SUMMARY | 2024-12-26 10:49 | XMS_ITS | Encounter Summary ---
Author Organization [facility] Address [address] [place] [address] [place] [address] Phone Care Team Providers Care Milk Wagon Driver Name Role Phone Loreto Bustillo CNP Unavailable Diann Juarez MD Unavailable Jacky Chan MD Unavailable Fariha Briseno NP Unavailable Tami Greenberg MD Unavailable [phone] Loreto Bustillo CNP Primary Care Provider Diann Juarez MD Unavailable [phone] Diann Juarez MD Unavailable [phone] Loreto Bustillo CNP Unavailable [phone] Encounter Details Date Type Department Care Team (Late st Contact Info) Description 07/17/2021 Procedure Pass [facility], Ct Scan - [address] [address] Social History Tobacco Use Types Packs/Day Years [...] Visit [facility] 70 [place] [address] Robert Tristan MD [address] [address] [email or web address] 01/09/2025 10:20 AM EDT Office Visit [facility] 70 [place] [address] Robert Tristan MD [address] [address] [email or web address] 06/06/2025 9:00 AM EDT Office Visit [facility] [place] [facility] 14 [facility] [address] [place] [address] Loreto Bustillo CNP [address] [address] documented as of this encounter Visit Diagnoses Not on filedocumented in this encounter Additional Health Concerns Assessment Noted Time PHQ-2 Depression Total Score: 0 04/02/19 22 8:45 AM EST documented as of this encounter Care Teams Milk Wagon Driver Relationship Specialty Start Date End Date Loreto Bustillo CNP 14 [facility] [address] [place] [address] PCP - General 01/12/17 Loreto Busitllo CNP [address] [place] [address] [place] [address] Historical LMR Provider 01/10/17 Diann Juarez MD [address] [place] [address] [email or web address] Historical LMR Provider 01/10/17 Jacky Chan MD [address] [place] [address] [email or web address] Historical LMR Provider 01/10/17 Fariha Briseno NP [address] [place] [address] [email or web address] Historical LMR Provider 01/10/17 Tami Greenberg MD [address] [place] [address] [email or web address] Historical LMR Provider 01/10/17 Diann Juarez MD [address] [place] [address] [email or web address] Insurance Assigned Provider 06/28/1903/28/22 Diann Juarez MD [address] [place] [address] Insurance Assigned Provider 06/26/2306/25/24 Loreto Bustillo CNP [address] [place] [address] Insurance Assigned Provider 06/25/24 documented as of this encounter Additional Source Comments The information contained in this document represents components of the legal health record. It is not the complete legal health record.[facility]
--- OUTSIDE RECORDS SUMMARY | 2024-12-26 10:49 | XMS_ITS | Encounter Summary ---
Author Organization [facility] Address [address] [place] [address] [place] [address] Phone Care Team Providers Care Covering Machine Operator Helper Name Role Phone Loreto Bustillo CNP Unavailable [phone] Diann Juarez MD Unavailable [phone] Jacky Chan MD Unavailable [phone] Fariha Briseno NP Unavailable [phone] Tami Greenberg MD Unavailable [phone] Loreto Bustillo CNP Primary Care Provider Diann Juarez MD Unavailable [phone] Diann Juarez MD Unavailable [phone] Loreto Bustillo CNP Unavailable [phone] Encounter Details Date Type Department Care Team (Latest Contact Info) Description 10/14/2021 Transcribe Orders [facility] [address] [address] Jami Tellez NP 10 [place] [address] Constipation, unspecified constipation type (Primary Dx); Abdominal pain, epigastric; Change in bowel habits; Nausea Social History [...] Description 12/26/2024 11:00 AM EDT Office Visit [facility] 70 [place] [address] Robert Tristan MD [address] [address] [email or web address] 01/09/2025 10:20 AM EDT Office Visit [facility] [address] [place] [address] Robert Tristan MD [address] [place] [address] [email or web address] 06/06/2025 9:00 AM EDT Office Visit [facility] [place] [facility] 14 [facility] [address] [place] [address] Loreto Bustillo, SYSTEMS INTEGRATION ENGINEER 14 [facility] [address] [place] [address] [email or web address] documented as of this encounter Results * HELICOBACTER PYLORI WITH CLARITHROMYCIN RESISTANCE PREDS (10/15/2021 8:33 AM EDT) Specimen Source STOOL [facility]+ Helicobacter pylori Result Not Detected Not Detected [facility]+ Comment: (NOTE) ADDITIONAL INFORMATION This test was developed and its performance characteristics determined by [facility] in a manner consistent with CLIA requirements. This test has not been cleared or approved by the U.S. Food and Drug Administration. Clarithromycin Resistance Result Test component not applicable or not reported. [facility]+ Blood 10/15/2021 8:33 AM EDT 10/15/2021 8:54 AM EDT Jami Tellez TRACK CAR OPERATOR BODY FLUIDS AND STOOLS OR DERABLES Final Result [facility] PAT+ [address] [place] [address] documented in this encounter Visit Diagnoses Diagnosis Constipation, unspecified constipation type- Primary Abdominal pain, epigastric Change in bowel habits Other symptoms involving digestive system Nausea Nausea alone Hyperlipidemia, unspecified hyperlipidemia type- Primary Essential hypertension Unspecified essential hypertension Coronary artery calcification seen on CT scan Mitral annular calcification Mitral valve disorders documented in this encounter Additional Health Concerns Assessment Noted Time PHQ-2 Depression Total Score: 0 04/02/19 8:45 AM EST documented as of this encounter Care Teams Covering Machine Operator Helper Relationship Specialty Start Date End Date Loreto Bustillo CNP [address] [place] [address] [place] [address] [email or web address] PCP - General 01/12/17 Loreto Bustillo CNP [address] [place] [address] [place] [address] [email or web address] Historical LMR Provider 01/10/17 Diann Juarez MD 14 [facility] [address] [place] [address] Historical LMR Provider 01/10/17 Jacky Chan MD [address] [place] [address] [address] [place] [address] [email or web address] Historical LMR Provider 01/10/17 Fariha Briseno NP [address] [place] [address] Historical LMR Provider 01/10/17 Tami Greenberg MD [address] [place] [address], [address] [place] [address] Historical LMR Provider 01/10/17 Diann Juarez MD [address] [place] [address] Insurance Assigned Provider 06/28/1903/28/22 Diann Juarez MD [address] [place] [address] Insurance Assigned Provider 06/26/2306/25/24 Loreto Bustillo CNP [address] [place] [address] Insurance Assigned Provider 06/25/24 documented as of this encounter Additional Source Comments The information contained in this document represents components of the legal health record. It is not the complete legal health record.[facility]
--- OUTSIDE RECORDS SUMMARY | 2024-12-26 10:49 | XMS_ITS | Encounter Summary ---
Author Organization [facility] Address [address] [place] [address] [place] [address] Phone Care Team Providers Care Hand Clerical Verifier Name Role Phone Loreto Bustillo CNP Unavailable [phone] Diann Juarez MD Unavailable Jacky Chan MD Unavailable [phone] Fariha Briseno NP Unavailable Tami Greenberg MD Unavailable Jonathan Alonzo MD Unavailable Unavailable Jim Durant MD Unavailable [phone] Marcos Sanz MD Unavailable [phone] Loreto Bustillo CNP Primary Care Provider Diann Juarez MD Unavailable [phone] Diann Juarez MD Unavailable [phone] Loreto Bustillo CNP Unavailable [phone] Encounter Details Date Type Department Care Team (Late st Contact Info) Description 08/24/2017 Procedure Pass [facility], [address] [phone] Social History Tobacco Use Types Packs/Day Years [...] on file documented as of this encounter Last Filed Vital Signs Vital Sign Reading Time Taken Comments Blood Pressure - - Pulse - - Temperature - - Respiratory Rate - - Oxygen Saturation - - Inhaled Oxygen Concentration - - Weight 64.9 kg (143 lb) 08/26/2017 2:23 PM EDT Height 160 cm (5' 3 ) 08/26/2017 2:23 PM EDT Body Mass Index 25.33 08/26/2017 2:23 PM EDT documented in this encounter Plan of Treatment Upcoming Encounters Date Type Department Care Team (Late st Contact Info) Description 12/26/2024 11:00 AM EDT Office Visit [facility] 70 [place] [address] Robert Tristan MD [address] [place] [address] [email or web address] 01/09/2025 10:20 AM EDT Office Visit [facility] 70 [place] [address] Robert Tristan MD [address] [place] [address] [email or web address] 06/06/2025 9:00 AM EDT Office Visit [facility] [place] [facility] 14 [facility] [address] [place] [address] Loreto Bustillo CNP 14 [facility] [address] [place] [address] documented as of this encounter Visit Diagnoses Not on filedocumented in this encounter Additional Health Concerns Infection Onset Date Last Indicated Resolved Time CoV-Risk 06/02/2021 06/02/2021 06/13/2021 1:23 AM EDT documented as of this encounter Care Teams Hand Clerical Verifier Relationship Specialty Start Date End Date Loreto Bustillo CNP 14 [facility] [address] [place] [address] [email or web address] PCP - General 01/12/17 Keny Loreto Thu, ELIZABETH [address] [place] [address] Historical LMR Provider 01/10/17 Diann Juarez MD [address] [place] [address] [email or web address] Historical LMR Provider 01/10/17 Jacky Chan MD [address] [place] [address] [email or web address] Historical LMR Provider 01/10/17 Fariha Briseno NP [address] [place] [address] [email or web address] Historical LMR Provider 01/10/17 Tami Greenberg MD [address] [place] [address] [email or web address] Historical LMR Provider 01/10/17 Jonathan Alonzo MD Historical LMR Provider 01/10/17 03/29/21 Jim Durant MD [address] [place] [address] Historical LMR Provider 01/10/17 2 Marcos Sanz MD [address] [address] [email or web address] Historical LMR Provider 01/10/17 03/29/21 Diann Juarez MD [address] [place] [address] [email or web address] Insurance Assigned Provider 06/28/1903/28/22 Diann Juarez MD [address] [place] [address] [email or web address] Insurance Assigned Provider 06/26/2306/25/24 Loreto Bustillo, ELIZABETH [address] [place] [address] [email or web address] Insurance Assigned Provider 06/25/24 documented as of this encounter Additional Source Comments The information contained in this document represents components of the legal health record. It is not the complete legal health record.[facility]
--- OUTSIDE RECORDS SUMMARY | 2024-12-26 10:49 | XMS_ITS | Encounter Summary ---
Author Organization [facility] Address [address] [place] [address] [place] [address] Phone Care Team Providers Care Cigarette Making Machine Operator Name Role Phone Loreto Bustillo CNP Unavailable [phone] Diann Juarez MD Unavailable Jacky Chan MD Unavailable [phone] Fariha Briseno NP Unavailable Tami Greenberg MD Unavailable Jonathan Alonzo MD Unavailable Unavailable Jim Durant MD Unavailable [phone] Marcos Sanz MD Unavailable [phone] Loreto Bustillo CNP Primary Care Provider Diann Juarez MD Unavailable [phone] Diann Juarez MD Unavailable [phone] Loreto Bustillo CNP Unavailable [phone] Encounter Details Date Type Department Care Team (Late st Contact Info) Description 05/04/2017 Procedure Pass [facility], Ct Scan - [address] [phone] Social History Tobacco Use Types Packs/Day Years [...] Description 12/26/2024 11:00 AM EDT Office Visit [facility] 70 [place] [address] Robert Tristan MD [address] [address] [email or web address] 01/09/2025 10:20 AM EDT Office Visit [facility] 70 [place] [address] Robert Tristan MD [address] [address] [email or web address] 06/06/2025 9:00 AM EDT Office Visit [facility] [place] [facility] 14 [facility] [address] [place] [address] Loreto Bustillo CNP [address] [place] [address] documented as of this encounter Visit Diagnoses Not on filedocumented in this encounter Additional Health Concerns Infection Onset Date Last Indicated Resolved Time CoV-Risk 06/02/2021 06/02/2021 06/13/2021 1:23 AM EDT documented as of this encounter Care Teams Cigarette Making Machine Operator Relationship Specialty Start Date End Date Loreto Bustillo CNP [address] [place] [address] [place] [address] PCP - General 01/12/17 Loreto Bustillo CNP [address] [place] [address] [email or web address] Historical LMR Provider 01/10/17 Diann Juarez MD [address] [address] [email or web address] Historical LMR Provider 01/10/17 Jacky Chan MD [address] [address] [email or web address] Historical LMR Provider 01/10/17 Farhia Briseno NP [address] [place] [address] [email or web address] Historical LMR Provider 01/10/17 Tami Greenberg MD [address] [place] [address], [address] [place] [address] [email or web address] Historical LMR Provider 01/10/17 Jonathan Alonzo MD Historical LMR Provider 01/10/17 03/29/21 Jim Durant MD [address] [place] [address] Historical LMR Provider 01/10/17 2 Marcos Sanz MD [address] [place] [address] [email or web address] Historical LMR Provider 01/10/17 03/29/21 Diann Juarez MD [address] [place] [address] [email or web address] Insurance Assigned Provider 06/28/1903/28/22 Diann Juarez MD [address] [place] [address] [place] [address] [email or web address] Insurance Assigned Provider 06/26/2306/25/24 Loreto Bustillo CNP 14 [facility] [address] [place] [address] [email or web address] Insurance Assigned Provider 06/25/24 documented as of this encounter Additional Source Comments The information contained in this document represents components of the legal health record. It is not the complete legal health record.[facility]
--- OUTSIDE RECORDS SUMMARY | 2024-12-26 10:49 | XMS_ITS | Encounter Summary ---
Author Organization [facility] Address [address] [place] [address] [place] [address] Phone Care Team Providers Care Ostomy Rn Name Role Phone Loreto Bustillo CNP Unavailable Diann Juarez MD Unavailable Jacky Chan MD Unavailable Fariha Briseno NP Unavailable Tami Greenberg MD Unavailable Loreto Bustillo CNP Primary Care Provider Diann Juarez MD Unavailable [phone] Diann Juarez MD Unavailable [phone] Loreto Bustillo CNP Unavailable [phone] Encounter Details Date Type Department Care Team (Late st Contact Info) Description 09/24/2021 Procedure Pass [facility], Ct Scan - [address] [address] Social History Tobacco Use Types Packs/Day Years [...] Description 12/26/2024 11:00 AM EDT Office Visit [facility] 70 [place] [address] Robert Tristan MD [address] [address] [email or web address] 01/09/2025 10:20 AM EDT Office Visit [facility] 70 [place] [address] Robert Tristan MD [address] [address] [email or web address] 06/06/2025 9:00 AM EDT Office Visit [facility] [place] [facility] 14 [facility] [address] [place] [address] Loreto Bustillo CNP [address] [address] documented as of this encounter Visit Diagnoses Not on filedocumented in this encounter Additional Health Concerns Assessment Noted Time PHQ-2 Depression Total Score: 0 04/02/19 22 8:45 AM EST documented as of this encounter Care Teams Ostomy Rn Relationship Specialty Start Date End Date Loreto Bustillo CNP 14 [facility] [address] [place] [address] [email or web address] PCP - General 01/12/17 Loreto Bustillo CNP [address] [place] [address] [place] [address] [email or web address] Historical LMR Provider 01/10/17 Diann Juarez MD [address] [place] [address] [email or web address] Historical LMR Provider 01/10/17 Jacky Chan MD [address] [place] [address] [email or web address] Historical LMR Provider 01/10/17 Fariha Briseno NP [address] [place] [address] [email or web address] Historical LMR Provider 01/10/17 Tami Greenberg MD [address] [place] [address] [email or web address] Historical LMR Provider 01/10/17 Diann Juarez MD [address] [place] [address] [email or web address] Insurance Assigned Provider 06/28/1903/28/22 Diann Juarez MD [address] [place] [address] Insurance Assigned Provider 06/26/2306/25/24 Loreto Bustillo CNP [address] [place] [address] Insurance Assigned Provider 06/25/24 documented as of this encounter Additional Source Comments The information contained in this document represents components of the legal health record. It is not the complete legal health record.[facility]
--- OUTSIDE RECORDS SUMMARY | 2024-12-26 10:49 | XMS_ITS | Encounter Summary ---
Author Organization [facility] Address [address] [place] [address] [place] [phone] Phone Care Team Providers Care Stone Planer Name Role Phone Loreto Bustillo CNP Unavailable [phone] Diann Juarez MD Unavailable Jacky Chan MD Unavailable Fariha Briseno NP Unavailable Tami Greenberg MD Unavailable [phone] Jonathan Alonzo MD Unavailable Unavailable Jim Durant MD Unavailable [phone] Marcos Sanz MD Unavailable [phone] Loreto Bustillo CNP Primary Care Provider Diann Juarez MD Unavailable Diann Juarez MD Unavailable [phone] Loreot Bustillo CNP Unavailable [phone] Reason for Referral * MRI/CAT Scan - Closed Specialty Diagnoses / Procedures Referred By Contac t Referred To Contact Radiology Diagnoses Ptosis of eyelid, unspecified laterality Procedures MRI Brain Latrice Ascencio MD Phone: tel: fax: Referral ID Status Reason Start Date Expiration Date Visits Re quested Visits Authorized [id number] Closed 08/24/2017 10/23/2017 1 1 Encounter Details Date Type Department Care Team (Late Contact Info) Description 08/24/2017 Ancillary Orders Virtual Department [address] [place] [address] Latrice Ascencio MD [address] [place] [address] [place] [address] Ptosis of eyelid, unspecified laterality Social History Tobacco Use Types Packs/Day Years [...] Encounters Date Type Department Care Team (Late Contact Info) Description 12/26/2024 11:00 AM EDT Office Visit [facility] [address] [place] [address] Robert Tristan MD [address] [place] [phone] [email or web address] 01/09/2025 10:20 AM EDT Office Visit [facility] [address] [place] [address] Robert Tristan MD [address] [place] [address] [email or web address] 06/06/2025 9:00 AM EDT [facility] [place] 14 [facility] [address] [place], [place] [phone] Loreto Bustillo, BEE TENDER 14 [facility] [address] [place], [place] [phone] [email or web address] documented as of this encounter Results * MRI BRAIN WITHOUT CONTRAST (08/31/2017 6:13 PM EDT) Anatomical Region Laterality Modality Head Magnetic Resonan ce 08/31/2017 6:36 PM EDT Impressions 08/31/2017 6:53 PM EDT Nonspecific periventricular white matter signal abnormalities, possibly reflecting small vessel disease, predominantly stable since 08/31/2016 when allowing for new small lesion in the left parietal lobe. No intracranial ischemia or mass detected. No other interval change apparent. Although the visualized cranial nerves are symmetric, the study was unfortunately not tailored for specific evaluation of the third cranial nerve and a limited follow-up contrast-enhanced study could be considered if felt to be warranted based upon clinical grounds. POS [id number] Narrative 08/31/2017 6:53 PM EDT TECHNIQUE: Exam performed on a 1.5 Itzel high-field MRI scanner. Axial T1, T2, T2 FLAIR, T2 GRE, and diffusion-weighted imaging with ADC map, sagittal T1 and T2 FLAIR sequences were obtained. FINDINGS: Comparison is made with the prior MR of 07/31/2016. There is no evidence of intracranial hemorrhage, ischemia, or mass. Scattered T2 hyperintense periventricular white matter foci are again noted with a new 4 mm lesion evident in the peripheral left parietal lobe. Dilated perivascular spaces along the parietal convexities are stable as is a dilated perivascular space versus lacune along the caudal extent of the right basal ganglia. Ventricles and cerebral sulci are stable in size. No pathologic extra-axial fluid collections are noted. The study was not protocoled for specific evaluation of the cranial nerves but the visualized portions of the extracanalicular cranial nerves VII and VIII are unremarkable in appearance as are the visualized portions of cranial nerves V and . No discrete mass is suggested in the region of the cavernous sinus. No gross orbital lesion detected. Normal flow-voids appear to be present in the major intracranial arteries at the base. Small mucous retention cysts are again noted in the left maxillary antrum. Procedure Note Deven James MD - 08/31/2017 TECHNIQUE: Exam performed on a 1.5 Itzel high-field MRI scanner. AxialT1, T2, T2 FLAIR, T2 GRE, and diffusion-weighted imaging with ADC map,sagittal T1 and T2 FLAIR sequences were obtained. FINDINGS: Comparison is made with the prior MR of 07/31/2016. There is no evidenceof intracranial hemorrhage, ischemia, or mass. Scattered T2 hyperintenseperiventricular white matter foci are again noted with a new 4 mm lesionevident in the peripheral left parietal lobe. Dilated perivascular spacesalong the parietal convexities are stable as is a dilated perivascularspace versus lacune along the caudal extent of the right basal ganglia.Ventricles and cerebral sulci are stable in size. No pathologicextra-axial fluid collections are noted. The study was not protocoled for specific evaluation of the cranial nervesbut the visualized portions of the extracanalicular cranial nerves VII andVIII are unremarkable in appearance as are the visualized portions ofcranial nerves V and . No discrete mass is suggested in the region ofthe cavernous sinus. No gross orbital lesion detected. Normal flow-voids appear to be presentin the major intracranial arteries at the base. Small mucous retentioncysts are again noted in the left maxillary antrum. IMPRESSION: Nonspecific periventricular white matter signal abnormalities, possiblyreflecting small vessel disease, predominantly stable since 08/31/2016when allowing for new small lesion in the left parietal lobe. Nointracranial ischemia or mass detected. No other interval changeapparent. Although the visualized cranial nerves are symmetric, the study wasunfortunately not tailored for specific evaluation of the third cranialnerve and a limited follow- up contrast-enhanced study could be consideredif felt to be warranted based upon clinical grounds. POS [id number] Latrice Ascencio MD IMG MR HEAD/NECK Final Re sult documented in this encounter Visit Diagnoses Diagnosis Ptosis of eyelid, unspecified laterality Ptosis of eyelid, unspecified laterality Hyperlipidemia, unspecified hyperlipidemia type- Primary Essential hypertension Unspecified essential hypertension Coronary artery calcification seen on CT scan Mitral annular calcification Mitral valve disorders documented in this encounter Additional Health Concerns Infection Onset Date Last Indicated Resolved Time CoV-Risk 06/02/2021 06/02/2021 06/13/2021 1:23 AM EDT documented as of this encounter Care Teams Stone Planer Relationship Specialty Start Date End Date Loreto Bustillo, ELIZABETH [address] [place] [address] [place] [phone] [email or web address] PCP - General 01/12/17 KenyMarieLoreto Thu, ELIZABETH [address] [place] [phone] Historical LMR Provider 01/10/17 Diann Juarez MD [address] [place] [phone] [email or web address] Historical LMR Provider 01/10/17 Jacky Chan MD [address] [place] [address] [email or web address] Historical LMR Provider 01/10/17 Fariha Briseno NP [address] [place] [address] [email or web address] Historical LMR Provider 01/10/17 Tami Greenberg MD [address] [place] [address] [email or web address] Historical LMR Provider 01/10/17 Jonathan Alonzo MD Historical LMR Provider 01/10/17 03/29/21 Jim Durant MD [address] [place] [address] Historical LMR Provider 01/10/17 2 Marcos Sanz MD [address] [address] [email or web address] Historical LMR Provider 01/10/17 03/29/21 Diann Juarez MD [address] [place] [address] [email or web address] Insurance Assigned Provider 06/28/1903/28/22 Diann Juarez MD [address] [place] [address] [email or web address] Insurance Assigned Provider 06/26/2306/25/24 Loreto Bustillo, ELIZABETH [address] [place] [address] [email or web address] Insurance Assigned Provider 06/25/24 documented as of this encounter Additional Source Comments The information contained in this document represents components of the legal health record. It is not the complete legal health record.[facility]
--- OUTSIDE RECORDS SUMMARY | 2024-12-26 10:49 | XMS_ITS | Encounter Summary ---
Author Organization [facility] Address [address] [place] [address] [place] [phone] Phone Care Team Providers Care Shipping Clerk Packing Name Role Phone Loreto Bustillo CNP Unavailable [phone] Diann Juarez MD Unavailable [phone] Jacky Chan MD Unavailable [phone] Fariha Briseno NP Unavailable Tami Greenberg MD Unavailable [phone] Loreto Bustillo CNP Primary Care Provider Diann Juarez MD Unavailable Diann Juarez MD Unavailable Loreto Bustillo CNP Unavailable [phone] Reason for Referral * Outpatient Procedure - Closed Specialty Diagnoses / Procedures Referred By Laurie oakley Referred To Contact Radiology Diagnoses Change in bowel habits Nausea Constipation, unspecified constipation type Gastroesophageal reflux disease, unspecified whether esophagitis present Procedures NM Gastric Emptying Jami Tellez NP Phone: tel: fax: Referral ID Status Reason Start Date Expiration Date Visits Re quested Visits Authorized [id number] Closed 01/01/2022 01/01/2023 1 1 Encounter Details Date Type Department Care Team (Latest Contact Info) Description 01/01/2022 Transcribe Orders Virtual Department [address] [place] [address] Jami Tellez NP [address] [place] [address] Change in bowel habits (Primary Dx); Nausea; Constipation, unspecified constipation type; Gastroesophageal reflux disease, unspecified whether esophagitis present Social History Tobacco Use Types Packs/Day Years [...] Description 12/26/2024 11:00 AM EDT Office Visit [facility] [address] [place] [address] Robert Tristan MD [address] [place] [address] [email or web address] 01/09/2025 10:20 AM EDT Office Visit [facility] [address] [place] [address] Robert Tristan MD [address] [place] [address] [email or web address] 06/06/2025 9:00 AM EDT Office Visit [facility] 14 [facility] [address] [place] [address] Loreto Bustillo, [employer]PER[employer]ENT [employer] 14 [facility] [address] [place] [address] [email or web address] documented as of this encounter Results * NM GASTRIC EMPTYING SOLID PHASE (01/29/2022 2:05 PM EST) Anatomical Region Laterality Modality Abdomen, Pelvis Nuclear Medicine 01/30/2022 1:53 PM EST Impressions 01/30/2022 1:54 PM EST Solid phase gastric emptying values as above. Narrative 01/30/2022 1:54 PM EST NM GASTRIC EMPTYING SOLID PHASE Radionuclide gastric emptying scan: COMPARISON: There is no prior study available for comparison TECHNIQUE: 1.0 mCi technetium 99m sulphur colloid was given orally as a standard solid phase meal. Intermittent upright imaging of the abdomen was performed immediately, and at 1, 2, and 4 hours. FINDINGS: Gastric emptying was 24.1 % at 1 hour, 59.3 % at 2 hours and 98.7 % at 4 hours. According to accepted international standards using this technique, median normal values for emptying are: 31% at 1hr, 76% at 2hrs, and 99% at 4 hours. 5th percentile values for emptying are: 10% at 1 hr, 40% at 2hrs, and 90% at 4 hours. Procedure Note Mariah Maldonado MD - 01/30/2022 NM GASTRIC EMPTYING SOLID PHASE Radionuclide gastric emptying scan: COMPARISON: There is no prior study available for comparison TECHNIQUE: 1.0 mCi technetium 99m sulphur colloid was given orally as a standardsolid phase meal. Intermittent upright imaging of the abdomen wasperformed immediately, and at 1, 2, and 4 hours. FINDINGS: Gastric emptying was 24.1 % at 1 hour, 59.3 % at 2 hours and 98.7 % at 4hours. According to accepted international standards using this technique, mediannormal values for emptying are: 31% at 1hr, 76% at 2hrs, and 99% at 4 hours. 5th percentile values for emptying are: 10% at 1 hr, 40% at 2hrs, and 90% at 4 hours. IMPRESSION: Solid phase gastric emptying values as above. Jami Tellez BIN OPERATOR IMG NM ABDOMEN Final Res ult documented in this encounter Visit Diagnoses Diagnosis Change in bowel habits- Primary Other symptoms involving digestive system Nausea Nausea alone Constipation, unspecified constipation type Gastroesophageal reflux disease, unspecified whether esophagitis present Change in bowel habits Other symptoms involving digestive system Nausea Nausea alone Constipation, unspecified constipation type Gastroesophageal reflux disease, unspecified whether esophagitis present Hyperlipidemia, unspecified hyperlipidemia type- Primary Essential hypertension Unspecified essential hypertension Coronary artery calcification seen on CT scan Mitral annular calcification Mitral valve disorders documented in this encounter Additional Health Concerns Assessment Noted Time PHQ-2 Depression Total Score: 0 04/02/19 8:45 AM EST documented as of this encounter Care Teams Shipping Clerk Packing Relationship Specialty Start Date End Date Loreto Bustillo CNP [address] [place] [id number] PCP - General 01/12/17 Loreto Bustillo CNP [address] [place] [address] Historical LMR Provider 01/10/17 Diann Juarez MD [address] [place] [address] Historical LMR Provider 01/10/17 Jacky Chan MD [address] [place] [address] [email or web address] Historical LMR Provider 01/10/17 Fariha Briseno NP [address] [place] [address] [email or web address] Historical LMR Provider 01/10/17 Tami Greenberg MD [address] [facility], 2nd [place] [address] [email or web address] Historical LMR Provider 01/10/17 Diann Juarez MD [address] [place] [address] [email or web address] Insurance Assigned Provider 06/28/1903/28/22 Diann Juarez MD [address] [place] [address] [email or web address] Insurance Assigned Provider 06/26/2306/25/24 Loreto Bustillo, ELIZABETH [address] [place] [address] [email or web address] Insurance Assigned Provider 06/25/24 documented as of this encounter Additional Source Comments The information contained in this document represents components of the legal health record. It is not the complete legal health record.[facility]
== END 2024-12-26 10:08 | disposition home or self-care (01) ==
LOC: HO.HSM 09:32
PROVIDERS: PCP Internal Medicine; Referring Provider Internal Medicine; Visit Provider Registered Nurse
DX: G43.909 Migraine, unspecified, not intractable, without status migrainosus (principal); H02.402 Unspecified ptosis of left eyelid
CPT/HCPCS: 99214

== ENCOUNTER → 2024-12-26 09:32 | Outpatient (BNVA) | payer MEDICARE, SELFPAY | PROVIDERS: PCP Internal Medicine; Referring Provider Internal Medicine; Visit Provider Registered Nurse | DX: G43.909 Migraine, unspecified, not intractable, without status migrainosus (principal); H02.402 Unspecified ptosis of left eyelid | CPT/HCPCS: 99212 ==